=== PATIENT | female | born 1965 | race Caucasian/White ===

== ENCOUNTER → 2016-08-25 | Outpatient (CLI) | payer BC ==
[~2016-08-25] MED LIST: AMOX1TAB42 PO; AMPH10TA2 PO; AMPH20CA3 PO; AMPH20TA2 PO; CHOL200027 PEG; CLR/5 PO; CYAN500T PO; FAMO40TA6 PO; GLC/500 PO; HYDR-5688 PO; HYDR12.55 PO; IBUP-1451 PO; IPRA1AER2 INH; LEVO75TA5 PO; LORA-741 PO; LOSA50TA6 PO; MULT1TAB22 PO; PRMVC VAGRING; VALA500T60 PO; VSC/10 PO
--- NOTE | 2016-08-25 13:04 | MAMMOGRAPHY REPORT ---
BILATERAL DIGITAL SCREENING MAMMOGRAM TOMOSYNTHESIS WITH CAD: 08/25/2016 CLINICAL HISTORY: Routine screening. Patient has no complaints. TECHNIQUE: Breast tomosynthesis in addition to standard 2D mammography was performed. Current study was also evaluated with a Computer Aided Detection (CAD) system. COMPARISON: Comparison is made to exams dated: 08/20/2015 mammogram - [facility], 1 05/26/2007 and 08/11/2013 and 02/09/2012 mammograms. BREAST COMPOSITION: The tissue of both breasts is almost entirely fatty. FINDINGS: No suspicious masses, calcifications, or areas of architectural distortion are noted in e ither breast. There has been no significant interval change compared to prior exams. Scattered bilat eral benign-appearing calcifications are not significantly changed. IMPRESSION: ACR BI-RADS CATEGORY 2: BENIGN There is no mammographic evidence of malignancy. A 1 year screening mammogram is recommended. The p atient will receive written notification of the results. Approximately 10% of breast cancers are not detected with mammography. A negative mammographic repor t should not delay biopsy if a clinically suggestive mass is present. Sharon Manley M.D. /:08/25/2016 07:52:05 [employer]: Neema BEST)(Michael), [facility] letter sent: Normal 1/2 BI-RADS Code: ACR BI-RADS Category 2: Benign
== END | disposition home or self-care (01) ==
LOC: C.MAMM 07:23
PROVIDERS: ATTEND Family Medicine
DX: Z12.31 Encounter for screening mammogram for malignant neoplasm of breast (principal)

== ENCOUNTER → 2016-10-20 | Outpatient (CLI) | payer BC, OTHER ==
--- NOTE | 2016-10-20 11:43 | DIAGNOSTIC IMAGING REPORT ---
RIGHT WRIST MIN 3 VIEWS ROUTINE CLINICAL HISTORY: Right wrist pain and numbness COMPARISON: None. DISCUSSION: No fractures or dislocations are visualized. There are no erosive or destructive changes. IMPRESSION: 1. No acute fractures. No erosive or destructive changes are visualized. Electronically signed by: Raad Soares M.D. 10/20/2016 11:41 AM Dictated Date/Time: 10/20/2016 11:41 AM
--- NOTE | 2016-10-20 12:01 | DIAGNOSTIC IMAGING REPORT ---
RIGHT ELBOW MIN 3 VIEWS CLINICAL HISTORY: RIGHT HAND PARESTHESIA Right COMPARISON STUDY: None. FINDINGS: No fracture or dislocation within the right elbow. No significant joint effusion. Soft tissues are unremarkable. Small osteophyte at the proximal ulna. There or small enthesophytes at the lateral epicondyle. IMPRESSION: No fractures. Chronic changes within the right elbow is described above. Electronically signed by: Nicanor Bhatt M.D. 10/20/2016 12:00 PM Dictated Date/Time: 10/20/2016 11:59 AM
== END | disposition home or self-care (01) ==
LOC: C.RDSM 11:25
PROVIDERS: ATTEND Physician Assistant
DX: R20.2 Paresthesia of skin (principal); M25.521 Pain in right elbow; M25.531 Pain in right wrist

== ENCOUNTER → 2017-06-22 | Outpatient (CLI) | payer BC ==
[~2017-06-22] MED LIST changes: -AMOX1TAB42 PO; -AMPH10TA2 PO; -AMPH20TA2 PO
[2017-06-22 13:28] LABS: ALBUMIN 3.8 gm/dl (3.4-5.0); ALT/SGPT 44 U/L (12-78); BLOOD UREA NITROGEN 14 mg/dl (7-18); CALCIUM 9.5 mg/dl (8.5-10.1); CARBON DIOXIDE 25 mmol/L (21-32); CHOLESTEROL 214 mg/dl (0-200); CREATININE 0.68 mg/dl (0.60-1.20); GLUCOSE 96 mg/dl (70-99); POTASSIUM 4.1 mmol/L (3.5-5.1); SODIUM 137 mmol/L (136-145)
[2017-06-22 13:38] LABS: ALKALINE PHOSPHATASE 63 U/L (45-117); AST/SGOT 27 U/L (15-37); LDL CHOLESTEROL CALCULATED 136 mg/dl; TOTAL PROTEIN 8.1 gm/dl (6.4-8.2)
== END | disposition home or self-care (01) ==
LOC: C.LABMFLN 09:51
PROVIDERS: ATTEND Family Medicine
DX: R30.0 Dysuria (principal); E53.8 Deficiency of other specified B group vitamins; E55.9 Vitamin D deficiency, unspecified; E16.1 Other hypoglycemia; I10 Essential (primary) hypertension; E78.00 Pure hypercholesterolemia, unspecified; E07.9 Disorder of thyroid, unspecified

== ENCOUNTER → 2017-08-31 | Outpatient (CLI) | payer BC | END | disposition home or self-care (01) | LOC: C.LABMFLN 12:08 | PROVIDERS: ATTEND Family Medicine | DX: R30.0 Dysuria (principal) ==

== ENCOUNTER → 2017-09-04 | Outpatient (CLI) | payer BC ==
--- NOTE | 2017-09-04 07:48 | DIAGNOSTIC IMAGING REPORT ---
CHEST 2 VIEWS ROUTINE CLINICAL HISTORY: 52 years-old Female presenting with R05 Cough. TECHNIQUE: PA and lateral views of the chest were obtained. COMPARISON: None. FINDINGS: Cardiac silhouette mildly enlarged. Lungs and pleural spaces clear. Degenerative changes of the thoracic spine. Upper abdomen normal. IMPRESSION: 1. Mild cardiomegaly. No other convincing evidence of acute cardiopulmonary disease. Electronically signed by: Sumit Estrada M.D. 09/04/2017 7:47 AM Dictated Date/Time: 09/04/2017 7:46 AM
== END | disposition home or self-care (01) ==
LOC: C.RAD 07:27
PROVIDERS: ATTEND Family Medicine
DX: R05 Cough (principal)

== ENCOUNTER → 2017-12-07 | Outpatient (CLI) | payer BC ==
[~2017-12-07] MED LIST changes: -HYDR-5688 PO
== END | disposition home or self-care (01) ==
LOC: C.LABMFLN 08:49
PROVIDERS: ATTEND Family Medicine
DX: R30.0 Dysuria (principal)

== ENCOUNTER 2019-07-01 13:03 | Inpatient (IN) ==
[2019-07-01] MEDS ORDERED: MAGNESIUM HYDROXIDE SUSP 30 ML UDC PO PRN (14:29)
[2019-07-01] MEDS ORDERED: ACETAMINOPHEN 325 MG TAB PO PRN (14:29)
[2019-07-01] MEDS ORDERED: DEXTROSE 50% 50 ML SYRINGE IV PRN (14:29)
[2019-07-01] MEDS ORDERED: GLUCAGON FOR INJ 1 MG VIAL SQ PRN (14:29)
[2019-07-01] MEDS ORDERED: ONDANSETRON INJ 2 MG/ML 2 ML VIAL IV PRN (14:29)
[2019-07-01] MEDS ORDERED: CARBOHYDRATES FOR HYPOGLYCEMIA PO PRN (14:29)
[2019-07-01] MEDS ORDERED: GLUCOSE 10 TABS/TUBE PO PRN (14:29)
[2019-07-01] MEDS ORDERED: GLUCOSE 40% GEL 15 GM TUBE PO PRN (14:29)
--- NOTE | 2019-07-01 14:35 | History & Physical Report ---
Date of Service July 01, 2019 Assessment & Plan (1) Pancreatitis: Dx in [place] ED, d/c'd s/p IVF and feeling improved--some sx lingering, but overall much better than yesterday States lipase was >3000, also noted on CTAP--records requested NPO, IVF CBC, PRP, Mg, Phos, lipase, amylase, LFTs pending TSH, lipids pending Will hold on further imaging given overall improvement GI c/s pending per request of Dr. Mas Pt notes hx of cyst on opening of CBD that is monitored Concern regarding recent victoza use, however she has not used in >6 months (2) Hypothyroidism: continue home meds TSH pending (3) Hypertension: continue home meds (4) Hypersomnia with sleep apnea: Compliant with CPAP at home, did not bring her machine ordered set up here (5) Hyperlipidemia: Denies hx of dx Lipids pending (6) Diabetes: Metformin only as current regimen with plans to try victoza again, but had not restarted Hold metformin SSI PRN A1c pending, was 6.1 11/2018 (7) ADHD: continue home meds (8) Asthma: States this was environmentally induced, no hx of inhaler use for many years (9) Dysuria: Hx of chronic klebsiella in urine Takes cipro x7d PRN dysuria Last use was 2 weeks ago (10) Migraines: continue home meds (11) DVT prophylaxis: SCDs History of Present Illness Primary Care Provider: Diego Montez, 54 y/o F who was a direct admit for acute pancreatitis. Pt states that she woke around 3a on Sunday with n/v. She thought she had the flu at that time. She started to have epigastric pain yesterday and it became so severe that she went to the ED in [place]. She states her lipase was >3000. She had a CTAP that showed pancreatitits. She was given IVF and felt much improved, so it was determined that she could be d/c'd to home with PCP f/u. She was seen by PCP today and it was felt that she needed further tx for this. Pt states that she has not thrown up today, but she has not been able to eat anything. She does have epigastric pain, but nothing like yesterday. She has had several episodes of diarrhea yesterday and today. Pt denies fever, chest pain, LE pain or swelling. No prior hx of similar epigastric pain or hx of pancreatitis. Pt notes SOB when walking from the parking lot to the lobby, but no other SOB. Concern from Dr. Mas regarding pt using Victoza. Pt states last dosing was in the summer as she did not tolerate it. She states that after her first dose she had v/d, so it was stopped. She tried it again a few weeks later, but with similar issues. She was actually supposed to start it again this week, but had these sx and therefore did not. She states that her BS were increased recently. Pt notes that she has a cyst at the opening of her CBD that is monitored yearly. She states it was not visualized on CTAP at OSH. Allergies Allergy/AdvReac Type Severity Reaction Status Date / Time nitrofurantoin Allergy Intermediate hives Verified 03/14/19 11:11 bismuth subsalicylate AdvReac Intermediate ringing in Unverified 03/14/19 11:11 ears / passed out Home Medications Home Medications Medication Instructions Recorded Confirmed Type furosemide 20 mg tablet 20 mg PO DAILY #90 tab 11/08/18 07/01/19 Rx blood sugar diagnostic #100 ea 12/06/18 07/01/19 Rx cholecalciferol (vitamin D3) 50 2,000 units PO DAILY #90 cap 12/06/18 07/01/19 Rx mcg (2,000 unit) capsule ciprofloxacin HCl 500 mg tablet 500 mg PO BID #180 tab 12/06/18 07/01/19 Rx famotidine 40 mg tablet 40 mg PO DAILY #90 tab 12/06/18 07/01/19 Rx ibuprofen 800 mg tablet 800 mg PO TID PRN #270 tab 12/06/18 07/01/19 Rx ipratropium 20 mcg-albuterol 100 1 puffs INH QID PRN #4 gm 12/06/18 07/01/19 Rx mcg/actuation mist for inhalation lancets #100 ea 12/06/18 07/01/19 Rx levothyroxine 88 mcg tablet 88 mcg PO DAILY #90 tab 12/06/18 07/01/19 Rx lorazepam 0.5 mg tablet 0.5 mg PO Q6H PRN #30 tab 12/06/18 07/01/19 Rx losartan 50 mg tablet 50 mg PO DAILY #90 tab 12/06/18 07/01/19 Rx multivitamin 1 tab PO DAILY #90 tab 12/06/18 07/01/19 Rx pen needle, diabetic 32 gauge x #100 ea 12/06/18 07/01/19 Rx 5/32" phenazopyridine 100 mg tablet 100 mg PO TID PRN #90 tab 12/06/18 07/01/19 Rx desloratadine 5 mg tablet 5 mg PO DAILY PRN #90 tab 12/13/18 07/01/19 Rx metformin 500 mg tablet,extended 500 mg PO BID #180 tab 12/13/18 07/01/19 Rx release 24 hr dextroamphetamine-amphetamine 10 10 mg PO DAILY #30 tab 01/10/19 07/01/19 Rx mg tablet sodium,potassium,mag sulfates 17.5 177 ml PO DAILY #354 ml 03/17/19 07/01/19 Rx gram-3.13 gram-1.6 gram oral soln dextroamphetamine-amphetamine ER 30 mg PO DAILY #30 cap 05/26/19 07/01/19 Rx 30 mg 24hr capsule,extend release liraglutide 0.6 mg/0.1 mL (18 mg/3 0.6 mg SQ DAILY #6 ml 06/12/19 07/01/19 Rx mL) subcutaneous pen injector Past Med/Surg History Medical History ADHD (Chronic) Asthma (Chronic) BMI 45.0-49.9, adult (Chronic) Cough (Chronic) Depression (Chronic) Diabetes (Chronic) Dysuria (Chronic) Elevated liver enzymes (Chronic) Encounter for screening colonoscopy (Chronic) Encounter for screening mammogram for breast cancer (Chronic) Gestational diabetes mellitus (Chronic) High blood cholesterol (Chronic) High blood pressure (Chronic) Hyperinsulinemia (Chronic) Hyperlipidemia (Chronic) Hypersomnia with sleep apnea (Chronic) Hypertension (Chronic) Hypothyroidism (Chronic) IBS (irritable bowel syndrome) (Chronic) Leg swelling (Chronic) Liver lesion (Chronic) Metabolic syndrome (Chronic) Migraines (Chronic) Morbid obesity (Chronic) Overweight (Chronic) Prediabetes (Chronic) Recurrent UTI (Chronic) Thyroid disorder (Chronic) Vitamin B12 deficiency (Chronic) Vitamin D deficiency (Chronic) Family History (Updated 07/01/19 @ 14:41 by Kassandra Spencer DO) Grandfather (Paternal) Myocardial infarction Social History marital status: Current Living Situation: Spouse current occupational status: employed current occupation: [employer] Feels Safe at Home: Yes Smoking Status: Former smoker Age Started Using Tobacco: 16 ; Age Quit Using Tobacco: 42 ; Cigarettes Per Day: 10 ; Second Hand Exposure: No ; Hx Alcohol Use: Yes Alcohol Intake Frequency: Holidays/Special Occasions Hx Substance Use: No Childhood Exposure to Second-Hand Smoke: Yes caffeine: Yes (coffee ) Dental Care, Regularly: Yes Physical Activity Frequency: Does not Exercise Seatbelt Use: always Sunscreen Use: Yes (occassionally) Review of Systems Review of Systems: Pertinent positives and negatives reviewed in HPI--all others negative Physical Exam Constitutional: WD/WN, vitals as above Eyes: normal visual cheney by confrontation and + anicteric sclerae Neck: normal visual inspection and trachea midline Respiratory: normal respiratory effort, lungs clear to auscultation Cardiovascular: Rate/Rhythm: regular rate and regular rhythm Gastrointestinal (Abdomen): Inspection/Auscultation: abdomen not distended Percussion/Palpation: + abdomen tender (epigastric) and abdomen soft Musculoskeletal: Head/Neck/Chest: normocephalic and head atraumatic negative for edema, peripheral pulses intact Skin: no rashes, warm and dry Neurologic: awake; not confused Speech / Cognition: normal speech Psychiatric: A+Ox3, euthymic affect Results & Data Vital Signs (Past 12 Hours) Vital Signs Temp Pulse Resp BP Pulse Ox 07/01/19 14:28 37.3 C 62 16 112/67 97 Code Status & VTE Plan Code Status Full code VTE Prophylaxis Plan VTE Prophylaxis will be ordered: Yes PG Care Time/CCT Total # of Minutes Spent Total Time Spent with Patient: Total time spent is greater than 50% in coordination of care (as documented) at patient's floor/unit and/or counseling patient: Coding Level of Care Code 98880 Initial Inpt Care Lvl 3 Diagnoses Pancreatitis K85.90 Hypothyroidism E03.9 Hypertension I10 Hypersomnia with sleep apnea G47.10; G47.30 Hyperlipidemia E78.5 Diabetes E11.9 ADHD F90.9 Asthma J45.909 Dysuria R30.0 Migraines G43.909 DVT prophylaxis Z29.9
[2019-07-01 14:59] LABS: Basophils # (auto) 0.01 K/uL (0-0.2); Basophils % (auto) 0.1 %; Eosinophils # (auto) 0.16 K/uL (0-0.5); Eosinophils % (auto) 1.8 %; Hematocrit (blood only) 40.7 % (37-47); Hemoglobin 13.5 g/dL (12.0-16.0); Immature Granulocytes # (auto) 0.01 K/uL (0.00-0.02); Immature Granulocytes % (auto) 0.1 %; Lymphocytes # (auto) 3.28 K/uL (1.2-3.4); Lymphocytes % (auto) 37.4 %; Mean Corpuscular Hemoglobin 33.3 pg (25-34); Mean Corpuscular Hgb Conc 33.2 g/dL (32-36); Mean Corpuscular Volume 100.2 fL (80-100); Mean Platelet Volume 9.1 fL (7.4-10.4); Monocytes # (auto) 0.74 K/uL (0.11-0.59); Monocytes % (auto) 8.4 %; Neutrophils # (auto) 4.58 K/uL (1.4-6.5); Neutrophils % (auto) 52.2 %; Platelet Count 266 K/uL (130-400); RDW Coefficient of Variation 12.5 % (11.5-14.5); RDW Standard Deviation 45.9 fL (36.4-46.3); Red Blood Count 4.06 M/uL (4.2-5.4); White Blood Count 8.78 K/uL (4.8-10.8)
[2019-07-01 15:15] LABS: BUN Creatinine Ratio 17.2 (10-20); Calcium 9.1 mg/dl (8.5-10.1); Creatinine Clr Calc Pharmacy 105.8 ml/min; Est GFR (African American) 104.7; Est GFR (Non-African American) 90.4; Magnesium 2.2 mg/dl (1.8-2.4); Potassium 3.2 mmol/L (3.5-5.1)
[2019-07-01] MEDS ORDERED: FUROSEMIDE 20 MG TAB PO PRN (15:23)
[2019-07-01] MEDS ORDERED: LORazepam 0.5 MG TAB PO PRN (15:23)
[2019-07-01] MEDS ORDERED: PHENAZOPYRIDINE HCL 100 MG TAB PO PRN (15:23)
[2019-07-01] MEDS ORDERED: IPRATROPIUM BROMIDE/ALBUTEROL respimat INH INH PRN (15:23)
[2019-07-01 15:26] LABS: Phosphorus 2.1 mg/dl (2.5-4.9); Thyroid Stimulating Hormone 2.89 uIu/ml (0.300-4.500)
--- NOTE | 2019-07-01 15:28 | Gastrointestinal Consultation ---
Date of Consultation July 01, 2019 Assessment & Plan (1) Pancreatitis: NPO, IV fluids, pain mangement. No obvious explanation. Not much ETOH. Await lipids. Check MRCP for bile duct pathology. Asked pharmacy to run outpt med list for suspects. n/v--supportive care diarrhea--resolved at present elevated LFTS--had last summer also, follow, if continue to be high then outpt workup elevated MCV--check Vit B12 level lung nodule on CT---told patient needs outpt f/u History of Present Illness Reason for Consultation: pancreatitis Attending Physician: Kassandra Spencer, History of Present Illness CC abd painn, n/v, diarrha HPI [place] with patient for h and P. 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 Yesterday developed epi pain and became severe. She presented to ER in [place]. CT a/p showed pancreatiis, 6 mm LLL nodule, fatty liver. Lipase greater than 3000. Resp virus panel from nares swab neg. Transaminases slighlty elevated AST54, ALT 45. Nl hgb but elevated MCV. 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 No hx of pancreatisi. Noted trigs normal 2017. RAre ETOH use with last use [employer]. No new meds. No fhx of pancreatitis.. She states abd pain now dull aches. Lipase today 1275. However she presented to PCP and not tolerating po. She last had stool lsts night. No new meds. Victoza was used several months ago and stoppped seccondary to side effects. Contemplated restarting but not has not. Allergies Allergy/AdvReac Type Severity Reaction Status Date / Time nitrofurantoin Allergy Intermediate hives Verified 03/14/19 11:11 bismuth subsalicylate AdvReac Intermediate ringing in Unverified 03/14/19 11:11 ears / passed out Home Medications Home Medications Medication Instructions Recorded Confirmed Type blood sugar diagnostic #100 ea 12/06/18 07/01/19 Rx cholecalciferol (vitamin D3) 50 2,000 units PO DAILY #90 cap 12/06/18 07/01/19 Rx mcg (2,000 unit) capsule ibuprofen 800 mg tablet 800 mg PO TID PRN #270 tab 12/06/18 07/01/19 Rx ipratropium 20 mcg-albuterol 100 1 puffs INH QID PRN #4 gm 12/06/18 07/01/19 Rx mcg/actuation mist for inhalation lancets #100 ea 12/06/18 07/01/19 Rx levothyroxine 88 mcg tablet 88 mcg PO DAILY #90 tab 12/06/18 07/01/19 Rx lorazepam 0.5 mg tablet 0.5 mg PO Q6H PRN #30 tab 12/06/18 07/01/19 Rx losartan 50 mg tablet 50 mg PO DAILY #90 tab 12/06/18 07/01/19 Rx multivitamin 1 tab PO DAILY #90 tab 12/06/18 07/01/19 Rx pen needle, diabetic 32 gauge x #100 ea 12/06/18 07/01/19 Rx 5/32" phenazopyridine 100 mg tablet 100 mg PO TID PRN #90 tab 12/06/18 07/01/19 Rx desloratadine 5 mg tablet 5 mg PO DAILY PRN #90 tab 12/13/18 07/01/19 Rx metformin 500 mg tablet,extended 500 mg PO BID #180 tab 12/13/18 07/01/19 Rx release 24 hr dextroamphetamine-amphetamine 10 10 mg PO DAILY #30 tab 01/10/19 07/01/19 Rx mg tablet sodium,potassium,mag sulfates 17.5 177 ml PO DAILY #354 ml 03/17/19 07/01/19 Rx gram-3.13 gram-1.6 gram oral soln dextroamphetamine-amphetamine ER 30 mg PO DAILY #30 cap 05/26/19 07/01/19 Rx 30 mg 24hr capsule,extend release liraglutide 0.6 mg/0.1 mL (18 mg/3 0.6 mg SQ DAILY #6 ml 06/12/19 07/01/19 Rx mL) subcutaneous pen injector ciprofloxacin HCl 500 mg PO BID PRN 07/01/19 07/01/19 History famotidine 40 mg PO DAILY PRN 07/01/19 07/01/19 History furosemide 20 mg PO DAILY PRN 07/01/19 07/01/19 History Patient History Medical History ADHD (Chronic) Asthma (Chronic) BMI 45.0-49.9, adult (Chronic) Cough (Chronic) Depression (Chronic) Diabetes (Chronic) Dysuria (Chronic) Elevated liver enzymes (Chronic) Encounter for screening colonoscopy (Chronic) Encounter for screening mammogram for breast cancer (Chronic) Gestational diabetes mellitus (Chronic) High blood cholesterol (Chronic) High blood pressure (Chronic) Hyperinsulinemia (Chronic) Hyperlipidemia (Chronic) Hypersomnia with sleep apnea (Chronic) Hypertension (Chronic) Hypothyroidism (Chronic) IBS (irritable bowel syndrome) (Chronic) Leg swelling (Chronic) Liver lesion (Chronic) Metabolic syndrome (Chronic) Migraines (Chronic) Morbid obesity (Chronic) Overweight (Chronic) Prediabetes (Chronic) Recurrent UTI (Chronic) Thyroid disorder (Chronic) Vitamin B12 deficiency (Chronic) Vitamin D deficiency (Chronic) Family History Grandfather (Paternal) Myocardial infarction Social History Preferred Language: Kyrgyz Communication Ability: Effective Clay Washer Required: No Beliefs That Will Affect Care: None marital status: Current Living Situation: Spouse current occupational status: employed current occupation: [employer] Other Information That Helps Us Care for You: No Feels Safe at Home: Yes Safety Concerns: Feels Safe At This Time Smoking Status: Former smoker Age Started Using Tobacco: 16 ; Age Quit Using Tobacco: 42 ; Cigarettes Per Day: 10 ; Do You Dip or Chew Tobacco: No ; Second Hand Exposure: No ; Tobacco Cessation Education Requested by Patient: No Hx Alcohol Use: Yes Alcohol Intake Frequency: Holidays/Special Occasions Hx Substance Use: No Childhood Exposure to Second-Hand Smoke: Yes caffeine: Yes (coffee ) Dental Care, Regularly: Yes Physical Activity Frequency: Does not Exercise Seatbelt Use: always Sunscreen Use: Yes (occassionally) Review of Systems Review of Systems: All systems reviewed & are unremarkable except as noted in HPI & below Physical Exam Constitutional: WD/WN, vitals as above Eyes: PERRL, conjunctivae normal, anicteric sclerae ENMT: external ear and nose normal, oropharynx normal Neck: normal visual inspection and trachea midline Respiratory: normal respiratory effort, lungs clear to auscultation Cardiovascular: RRR, no murmur, no edema Gastrointestinal (Abdomen): normal bowel sounds, soft, nontender, no hepatosplenomegaly Neurologic: PERRL, EOMI, accommodation nl, no face palsy, no dysarthria Psychiatric: A+Ox3, euthymic affect Results & Data ([facility]) Vital Signs (Past 12 Hours) Vital Signs Temp Pulse Resp BP Pulse Ox 07/01/19 14:28 37.3 C 62 16 112/67 97 07/01/19 14:15 37.3 C 62 16 112/67 97
[2019-07-01] MEDS ORDERED: POTASSIUM PHOS 3 MMOL/1 ML INFUSION IV STA (15:34)
[2019-07-01] MEDS: SODIUM CHLORIDE 0.9% 1000ML 1,000 ML IV SCH (15:39)
[2019-07-01] MEDS ORDERED: POTASSIUM PHOSPHATE 30 MMOL in SODIUM CHLORIDE 0.9% 500 ML IV ONE (16:00)
[2019-07-01] MEDS ORDERED: INSULIN ASPART 100 UNITS/ML 3 ML PEN SC SCH (16:30)
[2019-07-01] MEDS ORDERED: METFORMIN HCL ER 500 MG TABCR PO SCH (17:00)
--- NOTE | 2019-07-01 21:36 | Magnetic Resonance Report ---
MR MRCP CLINICAL HISTORY: 54 years-old Female presenting with vomiting, generalized abdominal pain, pancreati tis, hx of choledochal cyst. TECHNIQUE: Multisequence, multiplanar MR imaging of the abdomen was performed without the use of intr avenous contrast. Dedicated MRCP protocol was utilized. 3-D volumetric and/or maximum intensity proje ction (MIP) images were subsequently reconstructed for review. IV contrast: None. COMPARISON: 10/03/2018. FINDINGS: Localizer images: Unremarkable. Lung bases: Normal heart size. No pericardial or pleural effusion. Lung base clear. Liver: Normal morphology. Biliary: Conventional intrahepatic biliary ductal bifurcation. Focally dilated central intrahepatic b iliary ducts, unchanged from prior exam. No peripheral intrahepatic bile duct dilatation. Redemonstra tion of the dilated cystic duct. The size of the dilated cystic duct is unchanged measuring 27 mm in diameter. The dilated cystic duct involves a portion of the common bile duct. Apart from this involve ment, the common duct is not dilated. No gallstones. Mild gallbladder wall thickening, an appearance that is is slightly worsened from prior. No pericholecystic inflammatory change. Pancreas: Moderate parenchymal atrophy. No pancreatic ductal dilatation. Spleen: Normal noncontrast appearance. Adrenal glands: Normal noncontrast appearance. Kidneys and ureters: Normal noncontrast appearance. No hydronephrosis. Normal ureters. Bowel: Normal noncontrast appearance. No bowel obstruction. Peritoneal cavity: No free fluid. Lymph nodes: No gross lymphadenopathy allowing for noncontrast technique. Vasculature: Normal noncontrast appearance. Abdominal wall: Normal. Musculoskeletal: Normal. IMPRESSION: 1. 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 No complication is apparent. 2. Mild central predominant intrahepatic or ductal dilatation is unchanged from prior. 3. No cholelithiasis or choledocholithiasis. 4. Mild gallbladder wall thickening is nonspecific is stable to slightly worsened from prior. This m ay relate to biliary stasis. Chronic cholecystitis or diffuse adenomyomatosis not excluded. If there is concern for chronic cholecystitis, HIDA scan with ejection fraction could be obtained. ACT 112: Negative or not required by law. Electronically signed by: Sumit Estrada M.D. 07/01/2019 9:35 PM
[2019-07-02] MEDS: INSULIN ASPART 100 UNITS/ML 3 ML PEN SC SCH ×5 (00:22→21:32)
[2019-07-02] MEDS: SODIUM CHLORIDE 0.9% 1000ML 1,000 ML IV SCH ×2 (01:08→09:11)
[2019-07-02 05:50] LABS: Basophils # (auto) 0.02 K/uL (0-0.2); Basophils % (auto) 0.2 %; Eosinophils # (auto) 0.26 K/uL (0-0.5); Eosinophils % (auto) 2.8 %; Hematocrit (blood only) 33.8 % (37-47); Hemoglobin 11.7 g/dL (12.0-16.0); Immature Granulocytes # (auto) 0.01 K/uL (0.00-0.02); Immature Granulocytes % (auto) 0.1 %; Lymphocytes # (auto) 3.69 K/uL (1.2-3.4); Lymphocytes % (auto) 40.2 %; Mean Corpuscular Hemoglobin 34.1 pg (25-34); Mean Corpuscular Hgb Conc 34.6 g/dL (32-36); Mean Corpuscular Volume 98.5 fL (80-100); Mean Platelet Volume 8.2 fL (7.4-10.4); Monocytes # (auto) 0.64 K/uL (0.11-0.59); Neutrophils # (auto) 4.56 K/uL (1.4-6.5); Neutrophils % (auto) 49.7 %; Platelet Count 246 K/uL (130-400); RDW Coefficient of Variation 12.6 % (11.5-14.5); RDW Standard Deviation 45.6 fL (36.4-46.3); Red Blood Count 3.43 M/uL (4.2-5.4); White Blood Count 9.18 K/uL (4.8-10.8)
[2019-07-02 06:03] LABS: Estimated Average Glucose 131 mg/dl; Hemoglobin A1C 6.2 % (4.5-5.6)
[2019-07-02] MEDS: LEVOTHYROXINE SODIUM 88 MCG TABLET PO SCH (06:06)
[2019-07-02 06:18] LABS: Alanine Aminotransferase 31 U/L (12-78); Albumin Level 2.6 gm/dl (3.4-5.0); Aspartate Aminotransferase 14 U/L (15-37); BUN Creatinine Ratio 17.7 (10-20); Blood Urea Nitrogen 10 mg/dl (7-18); Calcium 8.3 mg/dl (8.5-10.1); Carbon Dioxide 25 mmol/L (21-32); Chloride 112 mmol/L (98-107); Creatinine Clr Calc Pharmacy 144.2 ml/min; Est GFR (African American) 123.2; Est GFR (Non-African American) 106.3; Glucose 82 mg/dl (70-99); Lipase 612 U/L (73-393); Potassium 3.2 mmol/L (3.5-5.1); Sodium 141 mmol/L (136-145)
[2019-07-02 06:22] LABS: Albumin Globulin Ratio 0.8 (0.9-2); Alkaline Phosphatase 54 U/L (45-117); Bilirubin Direct < 0.1 mg/dl (0-0.2); Bilirubin,Total 0.3 mg/dl (0.2-1); Chol HDL Ratio 3; Cholesterol 129 mg/dl (0-200); Globulin 3.4 gm/dl (2.5-4.0); HDL Cholesterol 41 mg/dl; LDL Cholesterol Calculated 73 mg/dl; Triglycerides 74 mg/dl (0-150); VLDL Cholesterol 15 mg/dl
[2019-07-02] MEDS: POTASSIUM CHLORIDE / WTR 10 MEQ/100 ML PLCT IV SCH ×4 (06:49→10:19)
[2019-07-02] MEDS: DEXTROAMPHETAMINE/AMPHETAMINE ER 10 MG CAP PO SCH (08:43)
[2019-07-02] MEDS ORDERED: [UNRECOGNIZED DRUG - OTHER] PO SCH (09:00)
[2019-07-02] MEDS: LACTATED RINGER'S 1,000 ML IV SCH ×2 (09:08→17:24)
--- NOTE | 2019-07-02 09:35 | Hospitalist Progress Note ---
Date of Service July 02, 2019 Assessment & Plan (1) Pancreatitis: * Dx in [place] ED, d/c'd s/p IVF and feeling improved--some sx lingering in ED. Lipase reported >[address] A/p. * IMPROVED. Currently, patient without reported pain * GI on consult -- appreciate input * Lipase down to 612 from 1275 on admission. * Lipid panel without elevation in triglycerides, 74 * IVF switched to LR -- will decrease rate as patient taking PO. * Patient requested clear liquid diet -- tolerated well. No additional pain. * Diet advanced to DM tray for dinner * TSH 2.89 * MRCP without evidence of stone. Unchanged cholecochocele, no dilation of CBD. Mild gb wall thickening, slightly worsened from previous exams * Possible that losartan induced, however patient has been taking this medication since May 2017 per outpatient record. Rec from GI to switch to alternative medication class. Patient has not received during this admission, and BP currently 122/72. (2) Hypothyroidism: * TSH 2.89. Stable. Continue levothyroxine 88mcg (3) Hypertension: * Patient takes losartan 50mg daily -- discontinued as possibly cause of pancreatitis (patient has not received since admission) * Monitor BP -- currently stable at 122/72 (4) Hypersomnia with sleep apnea: * Compliant with CPAP at home, did not bring her machine. ordered set up here (5) Hyperlipidemia: * Denies hx of dx. Lipids panel wnl (6) Diabetes: * Metformin only as current regimen with plans to try victoza again, but had not restarted. Of note, patient supposed to be taking metformin 500mg TWICE daily, but admits she typically only takes this once daily * Hold metformin while inpatient * SSI * A1c slightly increased to 6.2 from 6.1 in 11/2018 --> should have repeat in 3 months. Counseled patient that she should attempt to take twice daily. Could also alternatively give 1000mg once daily (7) ADHD: * Chronic. Stable. Continue home amphetamine/dextroamphetamine (8) Asthma: * States this was environmentally induced, no hx of inhaler use for many years (9) Macrocytosis: * MCV >100. B12 high 1725. Folate >24.0 * MCV only occasionally >100. Discussed with patient -- it continues to be elevated on repeat lab work she may want to have hematology follow up as an outpatient. Instructed to continue to hold B12 supplementations, as clearly not deficient (10) Hypokalemia: * K 3.2- given 4 K riders * Repeat in AM (11) Dysuria: * Hx of chronic klebsiella in urine. Takes cipro x7d PRN dysuria. Last use was 2 weeks ago (12) DVT prophylaxis: * SCDs Dispo: possible discharge tomorrow Admission and Anticipated Discharge Date Admission Date: July 01, 2019 Supervising Physician Co-Signing Physician Notes Attending Attestation - Chart reviewed in detail, care plan d/w NIDHI Wagner. I agree w/ the jaimes components of her documentation. Pt with pancreatitis - ?losartan induced? viral? other? Clinically improving. Start clears. Bartolo Juarez MD Subjective Patient evaluated up in chair. She states she is not having any abdominal pain currently, rated 0/10. Tolerated clear liquid diet this morning without difficulty. Reviewed MRCP and labs. Discussed etiologies of pancreatitis and possibly idiopathic in nature given normal triglycerides and occasional alcoholic be verage (last being Thanksgiving). She also states she takes 800mg ibuprofen daily for years for daily aches/pains. Discussed advancing diet and possible discharge tomorrow. All questions/concerns addressed. Review of Systems Review of Systems: All systems reviewed & are unremarkable except as noted in HPI & below Constitutional: no fever and no chills Ear, Nose, Mouth, Throat: no sore throat and no dysphagia Respiratory: no cough and no dyspnea Cardiovascular: no chest pain and no palpitations Gastrointestinal: no abdominal pain and no vomiting Genitourinary: no dysuria and no urinary frequency Physical Exam Constitutional: WD/WN, vitals as above no acute distress ENMT: slightly dry mm Neck: trachea midline, no thyromegaly Respiratory: normal respiratory effort, lungs clear to auscultation Cardiovascular: RRR, no murmur, no edema Gastrointestinal (Abdomen): Inspection/Auscultation: abdomen normal to inspection and normal bowel sounds; abdomen not distended Percussion/Palpation: + abdomen tender (minimally tender with deep palpation epigastric region) and abdomen soft; no guarding and abdomen not rigid Musculoskeletal: no cyanosis or clubbing, extremities motor strength 5/5 Skin: no rashes, warm and dry Neurologic: PERRL, EOMI, accommodation nl, no face palsy, no dysarthria Psychiatric: A+Ox3, euthymic affect Results & Data ([facility]) Vital Signs (Past 12 Hours) Vital Signs Temp Pulse Pulse Resp BP Pulse Ox 07/02/19 07:00 37.0 C 65 18 130/66 92 07/02/19 03:35 76 16 96 07/01/19 23:41 36.8 C 72 20 105/56 L 95 07/01/19 22:35 63 18 97 Laboratory Results 07/02/19 07/02/19 07/02/19 Range/Units 12:05 09:08 05:53 WBC (4.8-10.8) K/uL RBC (4.2-5.4) M/uL Hgb (12.0-16.0) g/dL Hct (37-47) % MCV (80-100) fL MCH (25-34) pg MCHC (32-36) g/dL RDW Std Deviation (36.4-46.3) fL RDW Coeff of Dorcas (11.5-14.5) % Plt Count (130-400) K/uL MPV (7.4-10.4) fL Immature Gran % (Auto) % Neut % (Auto) % Lymph % (Auto) % Hart % (Auto) % Eos % (Auto) % Baso % (Auto) % Immature Gran # (Auto) (0.00-0.02) K/uL Neut # (Auto) (1.4-6.5) K/uL Lymph # (Auto) (1.2-3.4) K/uL Hart # (Auto) (0.11-0.59) K/uL Eos # (Auto) (0-0.5) K/uL Baso # (Auto) (0-0.2) K/uL Sodium (136-145) mmol/L Potassium (3.5-5.1) mmol/L Chloride (98-107) mmol/L Carbon Dioxide (21-32) mmol/L Anion Gap (3-11) BUN (7-18) mg/dl Creatinine (0.6-1.2) mg/dl Est Cr Clr Drug Dosing ml/min Est GFR ( Amer) Est GFR (Non-Af Amer) BUN/Creatinine Ratio (10-20) Glucose (70-99) mg/dl POC Glucose 75 85 (70-99) mg/dl Estimat Average Glucose mg/dl Hemoglobin A1c (4.5-5.6) % Calcium (8.5-10.1) mg/dl Total Bilirubin (0.2-1) mg/dl Direct Bilirubin (0-0.2) mg/dl AST (15-37) U/L ALT (12-78) U/L Alkaline Phosphatase (45-117) U/L Total Protein (6.4-8.2) gm/dl Albumin (3.4-5.0) gm/dl Globulin (2.5-4.0) gm/dl Albumin/Globulin Ratio (0.9-2) Triglycerides (0-150) mg/dl Cholesterol (0-200) mg/dl LDL Cholesterol, Calc mg/dl VLDL Cholesterol, Calc mg/dl HDL Cholesterol mg/dl Cholesterol/HDL Ratio Lipase (73-393) U/L Vitamin B12 (211-911) pg/ml Folate > 24.00 (>5.38) ng/ml 07/02/19 07/02/19 07/02/19 Range/Units 05:36 05:36 05:36 WBC 9.18 (4.8-10.8) K/uL RBC 3.43 L (4.2-5.4) M/uL Hgb 11.7 L (12.0-16.0) g/dL Hct 33.8 L (37-47) % MCV 98.5 (80-100) fL MCH 34.1 H (25-34) pg MCHC 34.6 (32-36) g/dL RDW Std Deviation 45.6 (36.4-46.3) fL RDW Coeff of Dorcas 12.6 (11.5-14.5) % Plt Count 246 (130-400) K/uL MPV 8.2 (7.4-10.4) fL Immature Gran % (Auto) 0.1 % Neut % (Auto) 49.7 % Lymph % (Auto) 40.2 % Hart % (Auto) 7.0 % Eos % (Auto) 2.8 % Baso % (Auto) 0.2 % Immature Gran # (Auto) 0.01 (0.00-0.02) K/uL Neut # (Auto) 4.56 (1.4-6.5) K/uL Lymph # (Auto) 3.69 H (1.2-3.4) K/uL Hart # (Auto) 0.64 H (0.11-0.59) K/uL Eos # (Auto) 0.26 (0-0.5) K/uL Baso # (Auto) 0.02 (0-0.2) K/uL Sodium (136-145) mmol/L Potassium (3.5-5.1) mmol/L Chloride (98-107) mmol/L Carbon Dioxide (21-32) mmol/L Anion Gap (3-11) BUN (7-18) mg/dl Creatinine (0.6-1.2) mg/dl Est Cr Clr Drug Dosing ml/min Est GFR ( Amer) Est GFR (Non-Af Amer) BUN/Creatinine Ratio (10-20) Glucose (70-99) mg/dl POC Glucose (70-99) mg/dl Estimat Average Glucose 131 mg/dl Hemoglobin A1c 6.2 H (4.5-5.6) % Calcium (8.5-10.1) mg/dl Total Bilirubin (0.2-1) mg/dl Direct Bilirubin (0-0.2) mg/dl AST (15-37) U/L ALT (12-78) U/L Alkaline Phosphatase (45-117) U/L Total Protein (6.4-8.2) gm/dl Albumin (3.4-5.0) gm/dl Globulin (2.5-4.0) gm/dl Albumin/Globulin Ratio (0.9-2) Triglycerides (0-150) mg/dl Cholesterol (0-200) mg/dl LDL Cholesterol, Calc mg/dl VLDL Cholesterol, Calc mg/dl HDL Cholesterol mg/dl Cholesterol/HDL Ratio Lipase (73-393) U/L Vitamin B12 1725 H (211-911) pg/ml Folate (>5.38) ng/ml 07/02/19 07/02/19 07/01/19 Range/Units 05:36 00:15 16:28 WBC (4.8-10.8) K/uL RBC (4.2-5.4) M/uL Hgb (12.0-16.0) g/dL Hct (37-47) % MCV (80-100) fL MCH (25-34) pg MCHC (32-36) g/dL RDW Std Deviation (36.4-46.3) fL RDW Coeff of Dorcas (11.5-14.5) % Plt Count (130-400) K/uL MPV (7.4-10.4) fL Immature Gran % (Auto) % Neut % (Auto) % Lymph % (Auto) % Hart % (Auto) % Eos % (Auto) % Baso % (Auto) % Immature Gran # (Auto) (0.00-0.02) K/uL Neut # (Auto) (1.4-6.5) K/uL Lymph # (Auto) (1.2-3.4) K/uL Hart # (Auto) (0.11-0.59) K/uL Eos # (Auto) (0-0.5) K/uL Baso # (Auto) (0-0.2) K/uL Sodium 141 (136-145) mmol/L Potassium 3.2 L (3.5-5.1) mmol/L Chloride 112 H (98-107) mmol/L Carbon Dioxide 25 (21-32) mmol/L Anion Gap 4.0 (3-11) BUN 10 (7-18) mg/dl Creatinine 0.55 L (0.6-1.2) mg/dl Est Cr Clr Drug Dosing 144.2 ml/min Est GFR ( Amer) 123.2 Est GFR (Non-Af Amer) 106.3 BUN/Creatinine Ratio 17.7 (10-20) Glucose 82 (70-99) mg/dl POC Glucose 86 80 (70-99) mg/dl Estimat Average Glucose mg/dl Hemoglobin A1c (4.5-5.6) % Calcium 8.3 L (8.5-10.1) mg/dl Total Bilirubin 0.3 (0.2-1) mg/dl Direct Bilirubin < 0.1 (0-0.2) mg/dl AST 14 L (15-37) U/L ALT 31 (12-78) U/L Alkaline Phosphatase 54 (45-117) U/L Total Protein 6.0 L (6.4-8.2) gm/dl Albumin 2.6 L (3.4-5.0) gm/dl Globulin 3.4 (2.5-4.0) gm/dl Albumin/Globulin Ratio 0.8 L (0.9-2) Triglycerides 74 (0-150) mg/dl Cholesterol 129 (0-200) mg/dl LDL Cholesterol, Calc 73 mg/dl VLDL Cholesterol, Calc 15 mg/dl HDL Cholesterol 41 mg/dl Cholesterol/HDL Ratio 3 Lipase 612 H (73-393) U/L Vitamin B12 (211-911) pg/ml Folate (>5.38) ng/ml PG Care Time/CCT Total # of Minutes Spent Total Time Spent with Patient: Total time spent is greater than 50% in coordination of care (as documented) at patient's floor/unit and/or counseling patient: Coding Level of Care Code 60350 Subseq Hosp Care Lvl 3 Diagnoses Pancreatitis K85.90 Hypothyroidism E03.9 Hypertension I10 Hypersomnia with sleep apnea G47.10; G47.30 Hyperlipidemia E78.5 Diabetes E11.9 ADHD F90.9 Asthma J45.909 Macrocytosis D75.89 Hypokalemia E87.6 Dysuria R30.0 DVT prophylaxis Z29.9
[2019-07-02] MEDS ORDERED: Nursing to Pharmacy Communication ONE (11:20)
--- NOTE | 2019-07-02 15:03 | Progress Notes ---
DATE: 07/02/2019 The patient is sitting at bedside and tolerating clear liquids today with less abdominal pain, although it is still present but to a lesser degree. OBJECTIVE: Vital signs are normal. She is afebrile. Her lipase is down to 600 from 1200 yesterday. Lipid profile, TSH, liver profile, all normal. 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 There were no stones. She does not consume any alcohol. Calcium was normal. I did review her medication list and there are some case reports of losartan causing acute pancreatitis. The abdomen is box tender in the epigastric area. IMPRESSION: The patient has acute pancreatitis, etiology is not completely clear but review her medications indicates that losartan can potentially cause acute pancreatitis and I would eliminate this from her medication list and substitute it with something else in a different class. Will advance her diet to a low fat diabetic diet and if she tolerates this without worsening symptoms or backsliding then she can probably be discharged home tomorrow.
[2019-07-03] MEDS: LEVOTHYROXINE SODIUM 88 MCG TABLET PO SCH (06:07)
[2019-07-03] MEDS: LACTATED RINGER'S 1,000 ML IV SCH (06:38)
[2019-07-03 06:39] LABS: Basophils # (auto) 0.03 K/uL (0-0.2); Basophils % (auto) 0.3 %; Eosinophils # (auto) 0.33 K/uL (0-0.5); Eosinophils % (auto) 3.5 %; Hemoglobin 12.5 g/dL (12.0-16.0); Immature Granulocytes # (auto) 0.03 K/uL (0.00-0.02); Immature Granulocytes % (auto) 0.3 %; Lymphocytes # (auto) 4.15 K/uL (1.2-3.4); Lymphocytes % (auto) 43.9 %; Mean Corpuscular Hemoglobin 33.6 pg (25-34); Mean Corpuscular Hgb Conc 34.7 g/dL (32-36); Mean Corpuscular Volume 96.8 fL (80-100); Mean Platelet Volume 8.7 fL (7.4-10.4); Monocytes # (auto) 0.56 K/uL (0.11-0.59); Monocytes % (auto) 5.9 %; Neutrophils # (auto) 4.35 K/uL (1.4-6.5); Neutrophils % (auto) 46.1 %; Platelet Count 285 K/uL (130-400); RDW Coefficient of Variation 12.2 % (11.5-14.5); RDW Standard Deviation 43.6 fL (36.4-46.3); Red Blood Count 3.72 M/uL (4.2-5.4); White Blood Count 9.45 K/uL (4.8-10.8)
[2019-07-03 07:08] LABS: Albumin Level 2.9 gm/dl (3.4-5.0); BUN Creatinine Ratio 11.4 (10-20); Calcium 8.9 mg/dl (8.5-10.1); Creatinine Clr Calc Pharmacy 146.9 ml/min; Potassium 3.4 mmol/L (3.5-5.1)
[2019-07-03 07:11] LABS: Albumin Globulin Ratio 0.8 (0.9-2); Bilirubin,Total 0.3 mg/dl (0.2-1); Globulin 3.8 gm/dl (2.5-4.0); Total Protein 6.7 gm/dl (6.4-8.2)
[2019-07-03] MEDS ORDERED: POTASSIUM CHLORIDE 20 MEQ TABCR PO STA (07:31)
[2019-07-03] MEDS: DEXTROAMPHETAMINE/AMPHETAMINE ER 10 MG CAP PO SCH (08:08)
[2019-07-03] MEDS: INSULIN ASPART 100 UNITS/ML 3 ML PEN SC SCH ×2 (08:37→12:41)
--- NOTE | 2019-07-03 14:11 | Progress Notes ---
DATE: 07/03/2019 SUBJECTIVE: The patient continues to improve with decreased abdominal pain. She has been able to tolerate a low fat diet last evening and for breakfast and lunch today. Her amylase continues to fall. She is in the 400 range today. Her blood pressure is 130/72 off losartan, which is possibly the provoking factor for her pancreatitis. PHYSICAL EXAMINATION: GENERAL: The patient appears in no acute distress. VITAL SIGNS: Normal. CBC: Normal hemoglobin, white count and platelets. Liver profile is normal. Lipase 408. IMPRESSION: The patient's acute pancreatitis is improving; it is possible the losartan was etiologic but it is unclear. I have advised her to avoid in the future and with a normal blood pressure today she may not need anything for her blood pressure as a replacement. From a GI standpoint she can be discharged home on a low fat diet for the next 2 weeks with followup as an outpatient with her PCP.
--- NOTE | 2019-07-03 14:39 | Discharge Summary ---
Date of Service July 03, 2019 Admission HPI Per Admitting Provider 54 y/o F who was a direct admit for acute pancreatitis. Pt states that she woke around 3a on Sunday with n/v. She thought she had the flu at that time. She started to have epigastric pain yesterday and it became so severe that she went to the ED in [place]. She states her lipase was >3000. She had a CTAP that showed pancreatitits. She was given IVF and felt much improved, so it was determined that she could be d/c'd to home with PCP f/u. She was seen by PCP today and it was felt that she needed further tx for this. Pt states that she has not thrown up today, but she has not been able to eat anything. She does have epigastric pain, but nothing like yesterday. She has had several episodes of diarrhea yesterday and today. Pt denies fever, chest pain, LE pain or swelling. No prior hx of similar epigastric pain or hx of pancreatitis. Pt notes SOB when walking from the parking lot to the lobby, but no other SOB. Concern from Dr. Mas regarding pt using Victoza. Pt states last dosing was in the summer as she did not tolerate it. She states that after her first dose she had v/d, so it was stopped. She tried it again a few weeks later, but with similar issues. She was actually supposed to start it again this week, but had these sx and therefore did not. She states that her BS were increased recently. Pt notes that she has a cyst at the opening of her CBD that is monitored yearly. She states it was not visualized on CTAP at OSH. Admission Exam Per Admitting Provider Constitutional: WD/WN, vitals as above Eyes: normal visual cheney by confrontation and + anicteric sclerae Neck: normal visual inspection and trachea midline Respiratory: normal respiratory effort, lungs clear to auscultation Cardiovascular: Rate/Rhythm: regular rate and regular rhythm Gastrointestinal (Abdomen): Inspection/Auscultation: abdomen not distended Percussion/Palpation: + abdomen tender (epigastric) and abdomen soft Musculoskeletal: Head/Neck/Chest: normocephalic and head atraumatic negative for edema, peripheral pulses intact Skin: no rashes, warm and dry Neurologic: awake; not confused Speech / Cognition: normal speech Psychiatric: A+Ox3, euthymic affect Principal Diagnosis Acute Pancreatitis Discharge Exam Constitutional WD/WN, vitals as above no acute distress Neck trachea midline, no thyromegaly Respiratory normal respiratory effort, lungs clear to auscultation Cardiovascular RRR, no murmur, no edema Gastrointestinal (Abdomen) Inspection/Auscultation: abdomen normal to inspection and normal bowel sounds; abdomen not distended Percussion/Palpation: abdomen soft; no guarding and abdomen not rigid Musculoskeletal no cyanosis or clubbing, extremities motor strength 5/5 Skin no rashes, warm and dry Neurologic PERRL, EOMI, accommodation nl, no face palsy, no dysarthria Psychiatric A+Ox3, euthymic affect Discharge Data Allergies Allergy/AdvReac Type Severity Reaction Status Date / Time nitrofurantoin Allergy Intermediate hives Verified 07/07/19 11:56 bismuth subsalicylate AdvReac Intermediate ringing in Verified 07/07/19 11:56 ears / passed out Consultations 07/01/19 14:29 Consult Gastroenterology Routine 07/01/19 14:40 Consult Health Information Management Routine Ordered Studies 07/01/19 15:27 MR MRCP Routine Hospital Course (1) Pancreatitis: * Dx in [place] ED, d/c'd s/p IVF and feeling improved--some sx lingering in ED. Lipase reported >[address] A/p. * GI consulted * Lipase down to 612 from 1275 on admission. * Lipid panel without elevation in triglycerides, 74 wnl * IVF switched to LR in setting of pancreatitis. * TSH 2.89 * MRCP without evidence of stone. Unchanged cholecochocele, no dilation of CBD. Mild gb wall thickening, slightly worsened from previous exams. Should follow up with GI outpatient * Possible losartan induced, however patient has been taking this medication since May 2017 per outpatient record. Rec from GI to switch to alternative medication class. Patient has not received during this admission, and BP currently 122/72. * Patient may no longer require BP medication. * Of note, patient's children recently ill with viral illness -- possible that could have been viral pancreatitis (2) Hypothyroidism: * TSH 2.89. Stable. Continue levothyroxine 88mcg (3) Hypertension: * Discontinued losartan 50mg daily as possibly cause of pancreatitis (patient has not received since admission and BP stable, 130/72) * Follow up with PCP as outpatient --patient may no longer need anti- hypertensive. * Of note, she would also like to wean off her amephetamines, which could have contributed to her needing to be on HTN medications in the first place. (4) Hypersomnia with sleep apnea: * Continued CPAP (5) Hyperlipidemia: * Denies hx of dx. Lipids panel wnl (6) Diabetes: * Metformin only as current regimen with plans to try victoza again, but had not restarted. Of note, patient supposed to be taking metformin 500mg TWICE daily, but admitted she typically only takes this once daily * Held metformin while inpatient. SSI. * A1c slightly increased to 6.2 from 6.1 in 11/2018 --> should have repeat in 3 months. Counseled patient that she should attempt to take twice daily. Could also alternatively give 1000mg once daily (7) ADHD: * Chronic. Stable. Continued home amphetamine/dextroamphetamine * See above-- patient would like to discontinue/wean off -- to be discussed at follow up with PCP. (8) Asthma: * Stated environmentally induced, no hx of inhaler use for many years (9) Macrocytosis: * MCV >100. B12 high 1725. Folate >24.0 * MCV only occasionally >100. Discussed with patient -- it continues to be elevated on repeat lab work she may want to have hematology follow up as an outpatient. Instructed to continue to hold B12 supplementations, as clearly not deficient (10) Hypokalemia: * Low at 3.2 on 07/01- given 4 K riders. Repeat 3.6 (11) Dysuria: * Hx of chronic klebsiella in urine. Takes cipro x7d PRN dysuria. Last use was 2 weeks ago (12) Morbid obesity with BMI of 45.0-49.9, adult: * BMI 48.5 (13) DVT prophylaxis: * SCDs while inpatient Discharged home. Total Time Total Time Spent Total Time Spent (In Minutes): 60 Discharge Plan Discharge Items Patient Disposition: Home - Self-Care Reason For Visit: ACUTE PANCREATITIS Discharge Diagnosis: Acute Pancreatitis Condition on Discharge: Good Health Concerns: You have been hospitalized for an acute medical problem. During your stay at [facility], we have made an effort to correct the problem that brought you to the hospital while keeping you as comfortable as possible. Medications were used to bring your condition under control and your discharge instructions will include directions for any medications you should take after leaving the hospital. Please make sure you see your Primary Care Provider as part of your follow up plan. Activity: Resume your previous activity Non-emergency contact: Primary Care Provider and Lvn Call non-emergency contact if: you have any medication questions Follow-up/Referrals: Diego Montez DO [Primary Care Provider] - 07/07/19 12:00 pm (Follow up appt is on Friday 07/07 @ 1200 with Aziza AMBROCIO. Please arrive 15 minutes prior to appt time. If this date and time does not fit your schedule please call [phone] to reschedule. [address] ) Diet: Carb Consistent or DM2 and Low Fat Addtl Attending Provider Instructions: You have been hospitalized for acute pancreatitis. As there was no evidence of acute inflammation/stones of your gallbladder, it is unlikely that it is from gallstones, however one may have pass and caused an acute pancreatitis. -Additional reasons include elevated triglycerides, which yours were tested and are normal. -The other possibility is that it is from medications. One medication you were taking, losartan , has been implicated as a possible cause. -----For this reason, you should DISCONTINUE this medication. Your blood pressures have been well controlled while off of this medication and you may not need any additional medications to control your blood pressure. As discuss, your Adderall may cause your blood pressure to be elevated and you may want to discuss weaning off of this medication in the future, as you had expressed wanting to try to get off of this medication. You should avoid any alcohol or fatty foods for a minimum of two weeks. You should consume a low fat diet for the next two weeks. Of note, your A1c increased from 6.1 to 6.2%. You had previously discontinued Victoza, but you may very well be able to control your diabetes with metformin alone if you increase to the 1,000mg daily as prescribed. This dose can also be increased. If you have difficulty remembering to take this medication in the evening, you may take the 1,000mg at one time in the morning. You should follow up with GI (Dr. Mas) in the next two weeks. You should follow up with your primary care provider in the next 3-5 days. An appointment has been scheduled as above. Please return to the emergency room if you have worsening pain or for any symptoms that are concerning for you. It has been a pleasure being a part of the medical team providing for you while you have been in the hospital. Take care! Addtl Fan Runner Provider Instructions: The following information is from UpToDate: What is pancreatitis? * Pancreatitis is a condition that can cause severe belly pain. * The pancreas is an organ that makes hormones and juices that help break down food. Pancreatitis is the term for when this organ gets irritated or swollen. * Most people get over pancreatitis without any long-lasting effects. But a few people get very sick. What causes pancreatitis? There are many causes of pancreatitis. But most cases are caused by gallstones or alcohol abuse: * Gallstones Gallstones are hard lumps that form inside an organ called the gallbladder. Both the pancreas and the gallbladder drain into a single tube. If that tube gets clogged by a gallstone, neither of the organs can drain. When that happens, the fluids from both organs get backed up. That can cause pain. * Alcohol abuse People who drink too much alcohol for too long sometimes get alcohol-related pancreatitis. People with this form of pancreatitis usually start to feel pain 1 to 3 days after drinking a lot of alcohol or after they suddenly stop drinking. They usually also have nausea and vomiting. Pending Studies at Discharge: No Stand-Alone Forms: My [facility], Work/School Release (Inpt) Medications and DC Order Prescriptions: Continued Suprep Bowel Prep Kit 17.5-3.13-1.6 gram recon soln 177 ml PO DAILY Qty: 354 RF: 0 cholecalciferol (vitamin D3) 2,000 unit capsule 2,000 units PO DAILY Qty: 90 RF: 3 ibuprofen 800 mg tablet 800 mg PO TID PRN (Reason: pain) Qty: 270 RF: 3 lorazepam 0.5 mg tablet 0.5 mg PO Q6H PRN (Reason: anxiety) Qty: 30 RF: 0 Combivent Respimat 20-100 mcg/actuation mist 1 puffs INH QID PRN (Reason: sob) Qty: 4 RF: 3 phenazopyridine 100 mg tablet 100 mg PO TID PRN (Reason: pain) Qty: 90 RF: 0 (DME) pen needle, diabetic [BD Ultra-Fine Luzma Pen Needle] 32 gauge x 5/32" needle See Dose Instructions .ROUTE .MEDSUPPLY Qty: 100 RF: 3 (DME) Contour Next Test Strips strip See Dose Instructions .ROUTE .MEDSUPPLY Qty: 100 RF: 3 levothyroxine 88 mcg tablet 88 mcg PO DAILY Qty: 90 RF: 3 (DME) lancets [Microlet Lancet] misc See Dose Instructions .ROUTE .MEDSUPPLY Qty: 100 RF: 3 multivitamin tablet 1 tab PO DAILY Qty: 90 RF: 3 desloratadine 5 mg tablet 5 mg PO DAILY PRN (Reason: allergies) Qty: 90 RF: 3 metformin 500 mg tablet extended release 24 hr 500 mg PO BID Qty: 180 RF: 3 famotidine 40 mg tablet 40 mg PO DAILY PRN (Reason: Acid Reflux) RF: 0 ciprofloxacin HCl 500 mg tablet 500 mg PO BID PRN (Reason: Unknown) RF: 0 furosemide 20 mg tablet 20 mg PO DAILY PRN (Reason: Edema) RF: 0 Discontinued Victoza 2-Estrada 0.6 mg/0.1 mL (18 mg/3 mL) pen injector 0.6 mg SQ DAILY Qty: 6 RF: 2 losartan 50 mg tablet 50 mg PO DAILY Qty: 90 RF: 3 Discharge Orders: Discharge Order (Routine); Ordered 07/03/19 Ordered By: Lizette Wagner Admission Data Admit Date/Time: 07/01/19 14:00 Attending Provider: Bartolo Juarez Admit Provider: Kassandra Spencer Primary Care Provider: Diego Montez Other Providers: Nic Tripathi ; Bruno Mas Other Interventions: Discharge Summary Assessment (RN) Last Done: 07/03/19 14:55 DC Date/Time DO NOT enter until pt leaves facility: 07/03/19 16:05 Supervising Physician Co-Signing Physician Notes Attending Attestation and Discharge Note: Pt seen/examined, chart reviewed in detail, care plan d/w NIDHI Wagner. I agree w/ the jaimes components of her discharge documentation. 54yo female with T2DM who presented with acute pancreatitis. ?losartan induced? viral? other? Children had been sick with viral syndromes. No obvious gallstones or sludge on imaging studies. No etoh. Calcium normal. Trigs wnl. Clinically improved with IV fluids, diet restriction and time. Pain resolved w/ such. Evaluated by [facility] during the visit. They, too, were concerned about possible losartan induced pancreatitis. Recommended d/c of losartan at discharge. Recommended no etoh x 2 weeks. Recommended low-fat diet x 2 weeks. If she were to have recurrent pancreatitis - endoscopic u/s? Discharge exam: gen - obese, NAD eyes - no icterus heart - RRR lungs - cta b/l abd - soft NT ND BS+ no HSM ext - pulses 2+ b/l Bartolo Juarez MD Coding Level of Care Code D/C Day Management >30 mins Diagnoses Pancreatitis K85.90 Hypothyroidism E03.9 Hypertension I10 Hypersomnia with sleep apnea G47.10; G47.30 Hyperlipidemia E78.5 Diabetes E11.9 ADHD F90.9 Asthma J45.909 Macrocytosis D75.89 Hypokalemia E87.6 Dysuria R30.0 Morbid obesity with BMI of 45.0-49.9, adult E66.01; Z68.42 DVT prophylaxis Z29.9
== END 2019-07-03 16:05 | disposition home or self-care (01) | DRG 439 ==
LOC: 4W 14:00 → SUATTDRO 14:00
DX: Z88.1 Allergy status to other antibiotic agents; Z79.899 Other long term (current) drug therapy; R79.89 Other specified abnormal findings of blood chemistry; Z99.89 Dependence on other enabling machines and devices; Z88.8 Allergy status to other drugs, medicaments and biological substances; K85.30 Drug induced acute pancreatitis without necrosis or infection; E11.9 Type 2 diabetes mellitus without complications; T46.5X5A Adverse effect of other antihypertensive drugs, initial encounter; Z79.1 Long term (current) use of non-steroidal anti-inflammatories (NSAID); R91.1 Solitary pulmonary nodule; E03.9 Hypothyroidism, unspecified; G47.30 Sleep apnea, unspecified; D75.89 Other specified diseases of blood and blood-forming organs; I10 Essential (primary) hypertension; Q44.4 Choledochal cyst; E66.01 Morbid (severe) obesity due to excess calories; Z87.440 Personal history of urinary (tract) infections; Z87.09 Personal history of other diseases of the respiratory system; E87.6 Hypokalemia; F90.9 Attention-deficit hyperactivity disorder, unspecified type; G47.10 Hypersomnia, unspecified; Z87.891 Personal history of nicotine dependence; Z79.84 Long term (current) use of oral hypoglycemic drugs; Z68.42 Body mass index [BMI] 45.0-49.9, adult

== ENCOUNTER 2025-04-03 08:15 | Inpatient (IN) ==
--- NOTE | 2025-04-03 08:40 | Emergency Department Note ---
History of Present Illness General Chief complaint: Dental/Oral Stated complaint: INFECTED TOOTH Time Seen by Provider: 04/03/25 08:32 History of Present Illness Maximum Pain Intensity: 5 This is a 59-year-old female that presents to the emergency department via private vehicle with complaints of "infected tooth". The patient notes this past Sunday she began with discomfort, aching and swelling to the left side of the face/jaw area that has progressively worsened. She notes associated chills. No fevers, nausea or vomiting. No trouble breathing. Home Medications Medication Instructions Recorded Confirmed Type blood sugar diagnostic (Contour #100 ea 12/06/18 12/03/24 Rx Next Test Strips) lancets (Microlet Lancet) #100 ea 12/06/18 12/03/24 Rx compress.stocking,knee,reg,lrg #2 ea 11/06/19 12/03/24 Rx furosemide 20 mg tablet 20 mg PO DAILY PRN Edema #30 tabs 07/05/20 01/05/25 Rx albuterol sulfate 90 mcg/actuation 2 puff inhalation Q6H PRN 03/14/22 12/03/24 History aerosol inhaler Shortness Of Breath valacyclovir 1 gram tablet 1,000 mg PO DAILY PRN Flare 05/30/23 01/05/25 History (Valtrex) lorazepam 0.5 mg tablet 0.5 mg PO Q6H PRN anxiety #30 tabs 08/31/23 01/05/25 Rx metformin 500 mg tablet,extended 500 mg PO BID #180 tabs 01/01/24 01/05/25 Rx release 24 hr famotidine 40 mg tablet 40 mg PO DAILY #90 tabs 07/22/24 01/05/25 Rx estradiol 0.01% (0.1 mg/gram) 1 g vaginal 2XWK #42.5 grams 08/27/24 01/05/25 Rx vaginal cream bupropion HCl 300 mg 24 hr tablet, 300 mg PO QAM #90 tabs 11/01/24 01/05/25 Rx extended release (Wellbutrin XL) trospium 60 mg capsule,extended 60 mg PO DAILY #90 caps 11/12/24 01/05/25 Rx release 24 hr vibegron 75 mg tablet (Gemtesa) 0 mg PO DAILY 11/28/24 01/05/25 History CPAP Supplies #1 ea 12/18/24 Rx phenazopyridine 100 mg tablet 100 mg PO TID PRN pain 6 doses #30 02/07/25 Rx tabs levothyroxine 88 mcg tablet 88 mcg PO QAM #90 tabs 02/23/25 Rx losartan 25 mg tablet 25 mg PO DAILY #90 tabs 02/23/25 Rx fosfomycin tromethamine 3 gram 1 packet PO Q3D #2 ea 03/05/25 Rx oral packet Allergies Allergy/AdvReac Type Severity Reaction Status Date / Time bismuth subsalicylate Allergy Intermediate ringing in Verified 01/05/25 14:52 ears / passed out influenza virus vaccine ts Allergy Intermediate Rash Unverified 01/05/25 14:52 [id number] (36 mos,up) [From Fluarix] Past Med/Surg History Problem List (Updated 04/03/25 @ 17:33 by LOLLY Barrera) Dental infection Facial cellulitis Sleep apnea JOSEFINA on CPAP Sore throat Sinusitis Anxiety Depression Cellulitis of left anterior lower leg Left foot pain Rectal bleeding Cervical lymphadenopathy Elevated parathyroid hormone Serum calcium elevated Hoarseness Claudication Post-menopausal Myalgia Dysphagia Viral URI with cough Diabetes mellitus, type 2 Skin candidiasis Varicose veins of both lower extremities Numbness and tingling of both feet Left lumbar radiculopathy Lumbar pain Right upper quadrant pain Diarrhea Urinary incontinence, mixed Bradycardia Dyspnea on exertion Cardiomegaly RSV (acute bronchiolitis due to respiratory syncytial virus) Chest pain Cough Choledochal cyst Screening for condition Pap smear for cervical cancer screening Situational depression Fatigue Body aches Stuffy and runny nose Fever Cough Chronic venous insufficiency Lower extremity venous stasis Frequent urination Asymptomatic menopause Thoracolumbar back pain Pulmonary nodule Right upper quadrant pain Close exposure to COVID-19 virus Screening for condition Pericardial cyst Encounter for pre-operative examination Diabetes Macrocytosis Morbid obesity with BMI of 45.0-49.9, adult Elevated blood sugar PCOS (polycystic ovarian syndrome) Recurrent UTI Incidental lung nodule, > 3mm and < 8mm Hepatic steatosis Pancreatitis 06/[address] [facility] Vitamin D deficiency Vitamin B12 deficiency Migraines Metabolic syndrome Liver lesion Leg swelling IBS (irritable bowel syndrome) Hypothyroidism Hypertension no longer on meds Hypersomnia with sleep apnea cpap Hyperlipidemia Elevated liver enzymes Depression Asthma inhaler prn ADHD Medical History Morbid obesity with BMI of 50.0-59.9, adult Anxiety Recurrent UTI Hyperinsulinemia Surgical History History of carpal tunnel surgery of right wrist History of repair of anterior cruciate ligament of left knee History of total hysterectomy with bilateral salpingo-oophorectomy (BSO) History of wisdom tooth extraction Family History Grandfather (Paternal) Myocardial infarction Father Lung cancer Hypertension Family history of diabetes mellitus Mother Hypertension Grandmother (Paternal) Family history of diabetes mellitus Grandmother (Maternal) Family hx of colon cancer Other No family history of adverse response to anesthesia Denies family history of Ovarian cancer Prostate cancer Breast cancer Stroke Social History (Updated 11/28/24 @ 09:07 by Smith Brannon PA-C) Smoking Status: Former smoker Tobacco Type: Cigarettes Age Started Using Tobacco: 16; Age Quit Using Tobacco: 42; packs per day: 0.75; Cigarettes Per Day: 10; Smoking End Date: 15yrs ago; Second Hand Exposure: No; Do You Dip or Chew Tobacco: No; Hx Alcohol Use: No Hx Substance Use: No Preferred Language: Slovak Communication Ability: Effective Business Area Director Required: No Beliefs That Will Affect Care: None marital status: Current Living Situation: Alone current occupational status: employed current occupation: [employer] Feels Safe at Home: Yes Childhood Exposure to Second-Hand Smoke: Yes caffeine: Yes (coffee ) Dental Care, Regularly: Yes Physical Activity Frequency: Does not Exercise Seatbelt Use: always Sunscreen Use: Yes (occassionally) Assistive Devices: Glasses Review of Systems A total of 10 systems reviewed and were otherwise negative Physical Exam Vital Signs Vital Signs - 24 hr 04/03/25 08:21 04/03/25 09:00 04/03/25 09:17 Temperature 36.6 C Temperature Source Temporal Artery Scan Pulse Rate 56 L 54 L Pulse Rate [Apical] 53 L Respiratory Rate 18 16 Respiratory Effort / Characteristics Non-Labored Spontaneous Non-Labored Spontaneous Respiratory Depth Normal Normal Respiratory Pattern Regular Blood Pressure 148/64 H Blood Pressure [Right Arm] 142/66 H Blood Pressure Mean 92 Blood Pressure Mean [Right Arm] 91 Pulse Oximetry 96 96 Oxygen Delivery Method Room Air Room Air Sepsis Recent Fever Within 48 Hours No Sepsis New/Unexplained Change in Mental Status No Sepsis Action Taken by Nursing No Action Required 04/03/25 11:00 Temperature Temperature Source Pulse Rate Pulse Rate [Apical] 63 Respiratory Rate 20 Respiratory Effort / Characteristics Respiratory Depth Respiratory Pattern Blood Pressure Blood Pressure [Right Arm] 153/89 H Blood Pressure Mean Blood Pressure Mean [Right Arm] 110 Pulse Oximetry 97 Oxygen Delivery Method Room Air Sepsis Recent Fever Within 48 Hours Sepsis New/Unexplained Change in Mental Status Sepsis Action Taken by Nursing VITAL SIGNS - Vital signs and nursing notes were reviewed. Stable and afebrile. GENERAL -59-year-old female appearing her stated age who is in no acute distress. Communicates well with provider and answers questions appropriately. SKIN -erythema and edema noted to the left mandibular region/submandibular region. No fluctuance. No crepitus. HEAD - NC/AT. EYES - PERRL with EOMI bilaterally. Sclera anicteric. EARS - No deformities of external structures noted on gross examination bilaterally. NOSE - Midline and without cyanosis. No epistaxis or purulent drainage noted. S MOUTH/OROPHARYNX - Without perioral cyanosis. Buccal mucosa pink and moist and without leukoplakia. Tongue midline with equal elevation of palate bilaterally. Mild intraoral edema noted to the left buccal surface. Fair dentition noted. NECK - Neck with FROM. Tenderness and edema to the left mandibular/submandibular region. Left greater than right cervical lymphadenopathy noted. No nuchal rigidity. LUNGS - Chest wall symmetric without accessory muscle use, intercostals retractions, or central cyanosis. Normal vesicular breath sounds CTA B/L. No wheezes, rales, or rhonchi appreciated. CARDIAC -regular rate and rhythm. No murmur EXTREMITIES - +5/5 strength noted in UE/LE bilaterally. NEUROLOGIC - Cranial nerves II through XII grossly intact. PSYCH -alert, oriented and pleasant on exam Course Administered Medications Acetaminophen (Acetaminophen 325 Mg Tab) 650 mg PO Q4H PRN PRN Reason: Pain or Fever Stop: 05/03/25 12:45 Last Admin: 04/03/25 21:53 Dose: 650 mg Documented By: Admin: 04/03/25 17:44 Dose: 650 mg Documented By: Admin: 04/03/25 13:49 Dose: 650 mg Documented By: cad Ampicillin Sodium/Sulbactam Sodium (Unasyn) 3,000 mg in 100 mls @ 200 mls/hr IV Q6H [place] Stop: 04/10/25 15:59 Last Infusion: 04/03/25 21:53 Dose: Infused Documented By: Admin: 04/03/25 21:17 Dose: 200 mls/hr Documented By: Infusion: 04/03/25 16:31 Dose: Infused Documented By: Admin: 04/03/25 15:46 Dose: 200 mls/hr Documented By: SAMI Insulin Aspart (Insulin Aspart Per Unit Charge) 0 units SC ACHS [place] Stop: 05/03/25 17:44 Last Admin: 04/03/25 19:43 Dose: Not Given Documented By: SAUL Co-signed By: WALE Admin: 04/03/25 18:02 Dose: Not Given Documented By: SAMI Discontinued Medications Ampicillin Sodium/Sulbactam Sodium (Unasyn) 3,000 mg in 100 mls @ 200 mls/hr IV NOW STA Stop: 04/03/25 10:05 Last Infusion: 04/03/25 10:25 Dose: Infused Documented By: gerard Admin: 04/03/25 09:55 Dose: 200 mls/hr Documented By: uziel Ioversol (Optiray 320 100ml) 94 ml IV ONCE ONE Stop: 04/03/25 10:31 Last Admin: 04/03/25 10:30 Dose: 94 ml Documented By: EDEL Morphine Sulfate (Morphine Sulfate 2 Mg/Ml Carp) 2 mg IV NOW STA Stop: 04/03/25 11:13 Last Admin: 04/03/25 11:26 Dose: 2 mg Documented By: uziel Ondansetron HCl (Ondansetron Inj 2 Mg/Ml 2 Ml Vial) 4 mg IV NOW STA Stop: 04/03/25 11:13 Last Admin: 04/03/25 11:26 Dose: 4 mg Documented By: uziel Medical Decision Making Laboratory Data 04/03/25 09:30 04/03/25 09:30 Lab Results 04/03/25 Range/Units 09:30 WBC 11.46 H (4.8-10.8) K/ul RBC 4.17 L (4.20-5.40) M/uL Hgb 13.6 (12.0-16.0) g/dL Hct 41.0 (37.0-47.0) % MCV 98.3 (80.0-100.0) fL MCH 32.6 (25.0-34.0) pg MCHC 33.2 (32.0-36.0) g/dL RDW Std Deviation 44.6 (36.4-46.3) fL RDW Coeff of Dorcas 12.2 (11.5-14.5) % Plt Count 284 (130-400) K/uL MPV 9.0 L (9.4-12.4) fL Immature Gran % (Auto) 0.3 % Neut % (Auto) 69.0 % Lymph % (Auto) 20.9 % Grundy % (Auto) 7.7 % Eos % (Auto) 1.8 % Baso % (Auto) 0.3 % Neut # (Auto) 7.91 H (1.40-6.50) K/uL Lymph # (Auto) 2.39 (1.20-3.40) K/uL Grundy # (Auto) 0.88 H (0.11-0.59) K/uL Eos # (Auto) 0.21 (0.00-0.50) K/uL Baso # (Auto) 0.04 (0.00-0.20) K/uL Immature Gran # (Auto) 0.03 (0.01-0.20) K/uL Sodium 138 (136-145) mmol/L Potassium 3.9 (3.5-5.1) mmol/L Chloride 106 (98-107) mmol/L Carbon Dioxide 25 (21-32) mmol/L Anion Gap 7 (3-11) BUN 11 (6-23) mg/dl Creatinine 0.66 (0.6-1.2) mg/dl Est Cr Clr Drug Dosing 105.9 ml/min eGFR 100.99 BUN/Creatinine Ratio 16.7 (10-20) Glucose 96 (70-99(Fasting)) mg/dl Lactate 0.8 (0.4-2.0) mmol/L Calcium 10.1 (8.6-10.3) mg/dl Total Bilirubin 0.6 (0.2-1.0) mg/dl AST 13 (13-39) U/L ALT 16 (7-52) U/L Alkaline Phosphatase 58 (34-104) U/L Total Protein 7.5 (6.0-8.3) gm/dl Albumin 4.2 (3.4-5.0) gm/dl Globulin 3.3 (2.5-4.0) gm/dl Albumin/Globulin Ratio 1.3 (0.9-2) Procalcitonin 0.04 (0-0.5) ng/ml TSH 3.203 (0.300-4.500) uIu/ml Imaging Data Radiologist's Impression: Soft Tissue Neck CT 04/03/25 09:12 CT OF THE NECK WITH IV CONTRAST CLINICAL HISTORY: Neck edema, pain, dental infection. COMPARISON STUDY: No previous studies for comparison. TECHNIQUE: Following IV administration of 94 mL of Optiray, helical axial images of the neck were obtained. Sagittal and coronal reconstructions were viewed. Automated exposure control was utilized for the study. A dose lowering technique was utilized adhering to the principles of ALARA. CT DOSE: 635.53 mGy.cm FINDINGS: Visualized portions of the brain parenchyma are unremarkable. Mastoid air cells are clear. There is mild mucosal thickening within the right sphenoid and ethmoid sinuses. No orbital abnormality is identified. Major vasculature of the neck is patent. Parotid and submandibular glands are normal. Epiglottis is normal. Note is made of a periapical abscess of the left first mandibular molar (ADA #19). There is a tiny adjacent rim-enhancing fluid collection along the anterior aspect of the mandible which measures 0.8 x 0.2 cm. Moderate adjacent inflammation is present, including thickening of the platysma. There is skin thickening. No additional fluid collections. No soft tissue gas. No prevertebral edema. Visualized lung apices are unremarkable. Prominent cervical lymph nodes are likely reactive. Multiple dental amalgams are incidentally noted. IMPRESSION: Periapical abscess of the left first mandibular molar with a tiny adjacent abscess overlying the mandible. Moderate adjacent inflammation and skin thickening consistent with cellulitis. ACT 112: Negative or not required by law. Electronically signed by: Jose Enrique Redman M.D. 04/03/2025 10:51 AM MDM Narrative Patient was seen and evaluated as above in room B11a. Review was performed of nursing notes and vital signs. I did review pertinent previous visits and patient history. After obtaining a thorough history and physical examination the above work up was performed. Patient presents to us today for evaluation of the above symptoms. She has left-sided facial pain and swelling. This appears to be of dental origin. There is a fair amount of erythema and edema to the mandibular/submandibular area on the left. There is no drooling, stridor, trismus, wheezing or tripoding. Normal phonation. Options of care were discussed with the patient. IV access was established. Labs were drawn. There is leukocytosis 11.46. No concerning anemia. No evidence of kidney or liver failure. Procalcitonin within normal range making sepsis less likely. TSH reveals euthyroid state. CT soft tissue neck as above. Periapical abscess of the left first mandibular molar with a tiny adjacent abscess overlying the mandible. Moderate adjacent inflammation and skin thickening consistent with cellulitis. IV Unasyn was ordered. IV analgesia and antiemetics also ordered. At this time I do believe that further evaluation and management in the inpatient setting is warranted. Case discussed with the hospitalist service. Please refer to further documentation regarding her stay. GCS: 15 In the evaluation and treatment of this patient, the following differential diagnoses were considered: Periapical Abscess, Osteonecrosis of the Jaw, Dental Fracture, Dental Caries, Sarbjit's Angina, Vincent's Angina, Facial Cellulitis, among others. Impression & Plan Facial cellulitis, Dental infection Discharge Plan Visit Data Chief Complaint: Dental/Oral Stated Complaint: INFECTED TOOTH ED Provider: Nic Fuller ED Midlevel Provider: Smith Brannon Discharge Problem: Facial cellulitis, Dental infection Patient Disposition: Admitted As Inpatient Condition: Good Discharge Instructions Interventions: ED Discharge Assessment Last Done: 04/03/25 14:22
[2025-04-03] MEDS: AMPICILLIN/SULBACTAM SOD 3,000 MG/100 ML BAG IV STA (09:55)
[2025-04-03 09:58] LABS: Hematocrit (blood only) 41.0 % (37.0-47.0); Hemoglobin 13.6 g/dL (12.0-16.0); Immature Granulocytes # (auto) 0.03 K/uL (0.01-0.20); Immature Granulocytes % (auto) 0.3 %; Mean Corpuscular Hemoglobin 32.6 pg (25.0-34.0); Mean Corpuscular Volume 98.3 fL (80.0-100.0); Platelet Count 284 K/uL (130-400); RDW Standard Deviation 44.6 fL (36.4-46.3); Red Blood Count 4.17 M/uL (4.20-5.40); White Blood Count 11.46 K/ul (4.8-10.8)
[2025-04-03 10:16] LABS: Alanine Aminotransferase 16.0 U/L (7-52); Albumin Globulin Ratio 1.3 (0.9-2); Albumin Level 4.2 gm/dl (3.4-5.0); Alkaline Phosphatase 58.0 U/L (34-104); Anion Gap 7.0 (3-11); Bilirubin,Total 0.6 mg/dl (0.2-1.0); Blood Urea Nitrogen 11.0 mg/dl (6-23); Calcium 10.1 mg/dl (8.6-10.3); Carbon Dioxide 25.0 mmol/L (21-32); Chloride 106.0 mmol/L (98-107); Creatinine Clr Calc Pharmacy 105.9 ml/min; Globulin 3.3 gm/dl (2.5-4.0); Glucose 96.0 mg/dl (70-99(Fasting)); Potassium 3.9 mmol/L (3.5-5.1); Sodium 138.0 mmol/L (136-145); Total Protein 7.5 gm/dl (6.0-8.3)
[2025-04-03] MEDS: OPTIRAY 320 100ml IV ONE (10:30)
--- NOTE | 2025-04-03 10:53 | CT Scan Report ---
CT OF THE NECK WITH IV CONTRAST CLINICAL HISTORY: Neck edema, pain, dental infection. COMPARISON STUDY: No previous studies for comparison. TECHNIQUE: Following IV administration of 94 mL of Optiray, helical axial images of the neck were ob tained. Sagittal and coronal reconstructions were viewed. Automated exposure control was utilized f or the study. A dose lowering technique was utilized adhering to the principles of ALARA. CT DOSE: 635.53 mGy.cm FINDINGS: Visualized portions of the brain parenchyma are unremarkable. Mastoid air cells are clear. There is mild mucosal thickening within the right sphenoid and ethmoid sinuses. No orbital abnormali ty is identified. Major vasculature of the neck is patent. Parotid and submandibular glands are arielle l. Epiglottis is normal. Note is made of a periapical abscess of the left first mandibular molar (ADA #19). There is a tiny adjacent rim-enhancing fluid collection along the anterior aspect of the elan ble which measures 0.8 x 0.2 cm. Moderate adjacent inflammation is present, including thickening of t he platysma. There is skin thickening. No additional fluid collections. No soft tissue gas. No prever tebral edema. Visualized lung apices are unremarkable. Prominent cervical lymph nodes are likely reac tive. Multiple dental amalgams are incidentally noted. IMPRESSION: Periapical abscess of the left first mandibular molar with a tiny adjacent abscess overl james the mandible. Moderate adjacent inflammation and skin thickening consistent with cellulitis. ACT 112: Negative or not required by law. Electronically signed by: Jose Enrique Rdeman M.D. 04/03/2025 10:51 AM
[2025-04-03] MEDS: ONDANSETRON INJ 2 MG/ML 2 ML VIAL IV STA (11:26)
[2025-04-03] MEDS: MoRPHine SULFATE 2 MG/ML CARP IV STA (11:26)
[2025-04-03] MEDS ORDERED: POLYETHYLENE (MIRALAX) 17 GM PACK PO PRN (12:46)
[2025-04-03] MEDS ORDERED: MELATONIN 3 MG TAB PO PRN (12:46)
[2025-04-03] MEDS ORDERED: ONDANSETRON INJ 2 MG/ML 2 ML VIAL IV PRN (12:46)
[2025-04-03] MEDS ORDERED: MoRPHine SULFATE 4 MG/ML 1 ML CARP\\VIAL IV PRN (12:50)
[2025-04-03] MEDS: ACETAMINOPHEN 325 MG TAB PO PRN (13:49)
[2025-04-03] MEDS: AMPICILLIN/SULBACTAM SOD 3,000 MG/100 ML BAG IV SCH (15:46)
--- NOTE | 2025-04-03 16:21 | History & Physical Report ---
"Date of Service April 03, 2025 Assessment & Plan (1) Dental infection: (2) Facial cellulitis: (3) Hypertension: (4) Sleep apnea: (5) Diabetes mellitus, type 2: (6) Hypothyroidism: (7) Depression: Plan Patient is a 59-year-old female with past medical history significant for h ypothyroidism, hypertension, hyperlipidemia, post menopausal, urinary incontinence/mixed, chronic venous insufficiency, PCOS, hepatic steatosis, vitamin D deficiency, vitamin B12 deficiency, depression, and type 2 diabetes presents with complaints of a left-sided molar pain that started 2 days ago. She has had increased swelling to the left side of her face over the course of the past 48 hours progressing from a golf ball sized swelling to more marked facial swelling extending into the left submandibular area. She has been without any symptoms of Sarbjit's angina-->>no tongue swelling or tongue elevation, difficulty swallowing, or concerns related to voice articulation. ER workup unremarkable in regards to concerns for overt infection as CBC is without marked leukocytosis with white blood cells at 11.46, pro-catalina 0.04, lactate 0.8. She presented to the emergency department without fever/hypotension/tachycardia. Blood cultures drawn in the emergency department. She did receive 1 dose of Unasyn 3 g IV in the emergency department. CT of the neck with IV contrast revealed periapical abscess of the left first mandibular molar with adjacent abscess overlying the mandible, moderate adjacent inflammation and skin thickening consistent with cellulitis. ##Dental abcess/facial cellulitis -admit to med [facility] for close monitoring -cont pulse oximetry -Unasyn 3Gm IV Q6H -Tylenol po PRN pain, Morphine IV prn pain control -full liquid diet -consult maxillofacial surgery-->case discussed with Dr. Wilson with imaging review, will see patient in the am -trend CBC, CRP -BCX2 pending ##T2DM -hold Metformin -last HbA1C 6.0 05/20/24, check with am labs -BSG ACHS with pharm consult for management ##HTN -cont ARB as Cr 0.66 ##Depression|anxiety -cont bupropion hcl 300mg daily -cont lorazepam 0.5mg po Q6H prn ##hypothyroidism -TSH -cont levothyroxine 88mcg po daily ##sleep apnea -CPAP as tolerated considering facial swelling DVT prophylaxis: SCDs, low risk Diet: Full liquid Disposition: Admit to med-[facility] CODE STATUS: FULL CODE Admission and Anticipated Discharge Date Admission Date: April 03, 2025 History of Present Illness Chief Complaint: Infected tooth and left sided facial pain Primary Care Provider: Diego Montez DO Patient is a 59-year-old female with past medical history significant for hypothyroidism, hypertension, hyperlipidemia, post menopausal, urinary incontinence/mixed, chronic venous insufficiency, PCOS, hepatic steatosis, vitamin D deficiency, vitamin B12 deficiency, depression, and type 2 diabetes presents with complaints of a left-sided molar pain that started 2 days ago. She has had increased swelling to the left side of her face over the course of the past 48 hours progressing from a golf ball sized swelling to more marked facial swelling extending into the left submandibular area. Also reports her left sided upper and lower lip have been slightly swollen as well. She denies any recent injury to the left molar or fracturing. States she has had some mild discomfort to the left molar over the course of the past year that has waxed and waned. She has attempted to secure an appointment with a dentist to address this issue but has had difficulty secondary to insurance purposes. She denies fever, chills, tongue swelling, dysphagia, shortness of breath/stridor, drooling, palpitations, chest pain. She does not smoke or drink ETOH. After full discussion regarding resuscitative status while being hospitalized the patient states she wishes to be a full code. Allergies Allergy/AdvReac Type Severity Reaction Status Date / Time bismuth subsalicylate Allergy Intermediate ringing in Verified 01/05/25 14:52 ears / passed out influenza virus vaccine ts Allergy Intermediate Rash Unverified 01/05/25 14:52 [id number] (36 mos,up) [From Fluarix] Home Medications Medication Instructions Recorded Confirmed Type blood sugar diagnostic (Contour #100 ea 12/06/18 12/03/24 Rx Next Test Strips) lancets (Microlet Lancet) #100 ea 12/06/18 12/03/24 Rx compress.stocking,knee,reg,lrg #2 ea 11/06/19 12/03/24 Rx furosemide 20 mg tablet 20 mg PO DAILY PRN Edema #30 tabs 07/05/20 01/05/25 Rx albuterol sulfate 90 mcg/actuation 2 puff inhalation Q6H PRN 03/14/22 12/03/24 History aerosol inhaler Shortness Of Breath lorazepam 0.5 mg tablet 0.5 mg PO Q6H PRN anxiety #30 tabs 08/31/23 01/05/25 Rx metformin 500 mg tablet,extended 500 mg PO BID #180 tabs 01/01/24 01/05/25 Rx release 24 hr famotidine 40 mg tablet 40 mg PO DAILY #90 tabs 07/22/24 01/05/25 Rx estradiol 0.01% (0.1 mg/gram) 1 g vaginal 2XWK #42.5 grams 08/27/24 01/05/25 Rx vaginal cream bupropion HCl 300 mg 24 hr tablet, 300 mg PO QAM #90 tabs 11/01/24 01/05/25 Rx extended release (Wellbutrin XL) trospium 60 mg capsule,extended 60 mg PO DAILY #90 caps 11/12/24 01/05/25 Rx release 24 hr vibegron 75 mg tablet (Gemtesa) 0 mg PO DAILY 11/28/24 01/05/25 History CPAP Supplies #1 ea 12/18/24 Rx phenazopyridine 100 mg tablet 100 mg PO TID PRN pain 6 doses #30 02/07/25 Rx tabs levothyroxine 88 mcg tablet 88 mcg PO QAM #90 tabs 02/23/25 Rx losartan 25 mg tablet 25 mg PO DAILY #90 tabs 02/23/25 Rx fosfomycin tromethamine 3 gram 1 packet PO Q3D #2 ea 03/05/25 Rx oral packet amoxicillin 875 mg-potassium 1 tab PO BID 7 days #14 tabs 04/05/25 04/07/25 Rx clavulanate 125 mg tablet tramadol 50 mg tablet 50 mg PO BID PRN pain #6 tabs 04/05/25 04/07/25 Rx valacyclovir 1 gram tablet 1,000 mg PO DAILY PRN Flare #7 tabs 04/06/25 Rx (Valtrex) Past Med/Surg History Problem List (Updated 04/05/25 @ 07:22 by Ramone Higgins MD) Dental infection Facial cellulitis Sleep apnea Sore throat Sinusitis Cellulitis of left anterior lower leg Left foot pain Rectal bleeding Cervical lymphadenopathy Elevated parathyroid hormone Serum calcium elevated Hoarseness Post-menopausal Myalgia Dysphagia Viral URI with cough Skin candidiasis Varicose veins of both lower extremities Numbness and tingling of both feet Left lumbar radiculopathy Lumbar pain Right upper quadrant pain Diarrhea Urinary incontinence, mixed Bradycardia Dyspnea on exertion Cardiomegaly RSV (acute bronchiolitis due to respiratory syncytial virus) Chest pain Cough Choledochal cyst Screening for condition Pap smear for cervical cancer screening Situational depression Fatigue Body aches Stuffy and runny nose Fever Cough Chronic venous insufficiency Lower extremity venous stasis Frequent urination Asymptomatic menopause Thoracolumbar back pain Pulmonary nodule Right upper quadrant pain Close exposure to COVID-19 virus Screening for condition Pericardial cyst Encounter for pre-operative examination Diabetes Macrocytosis Morbid obesity with BMI of 45.0-49.9, adult Elevated blood sugar PCOS (polycystic ovarian syndrome) Recurrent UTI Incidental lung nodule, > 3mm and < 8mm Hepatic steatosis Pancreatitis 06/2019 hospitalized at [facility] Vitamin D deficiency Vitamin B12 deficiency Migraines Metabolic syndrome Liver lesion Leg swelling IBS (irritable bowel syndrome) Hypothyroidism Hypertension no longer on meds Hypersomnia with sleep apnea cpap Hyperlipidemia Elevated liver enzymes Depression ADHD Medical History (Updated 04/05/25 @ 07:22 by Ramone Higgins MD) Asthma inhaler prn Diabetes mellitus, type 2 Claudication Depression Anxiety JOSEFINA on CPAP Morbid obesity with BMI of 50.0-59.9, adult Recurrent UTI Hyperinsulinemia Surgical History (Updated 04/07/25 @ 15:10 by Elizabeth Odom RN) History of incision and drainage (04/05/25) Incision and Drainage of Left Face/Jaw with Removal of Tooth #19.(Left) - Vincent Wilson, DMD History of carpal tunnel surgery of right wrist History of repair of anterior cruciate ligament of left knee History of total hysterectomy with bilateral salpingo-oophorectomy (BSO) History of wisdom tooth extraction Family History Grandfather (Paternal) Myocardial infarction Father Lung cancer Hypertension Family history of diabetes mellitus Mother Hypertension Grandmother (Paternal) Family history of diabetes mellitus Grandmother (Maternal) Family hx of colon cancer Other No family history of adverse response to anesthesia Denies family history of Ovarian cancer Prostate cancer Breast cancer Stroke Social History (Updated 11/28/24 @ 09:07 by Smith Brannon PA-C) Smoking Status: Former smoker Tobacco Type: Cigarettes Age Started Using Tobacco: 16; Age Quit Using Tobacco: 42; packs per day: 0.75; Cigarettes Per Day: 10; Second Hand Exposure: No; Do You Dip or Chew Tobacco: No; Hx Alcohol Use: No Hx Substance Use: No Preferred Language: Scottish Communication Ability: Effective Material Controller Required: No Beliefs That Will Affect Care: None marital status: Current Living Situation: Alone current occupational status: employed current occupation: [employer] Feels Safe at Home: Yes Childhood Exposure to Second-Hand Smoke: Yes caffeine: Yes (coffee ) Dental Care, Regularly: Yes Physical Activity Frequency: Does not Exercise Seatbelt Use: always Sunscreen Use: Yes (occassionally) Assistive Devices: Glasses Review of Systems Review of Systems: All systems reviewed & are unremarkable except as noted in Subjective Physical Exam Physical Exam: GENERAL APPEARANCE: A&O. Sitting comfortably on stretcher. NAD. SKIN: Normal color without rashes or lesions. Normal turgor. HEENT: Head AT/NC. Buccal mucosa is moist and pink. Slight swelling to left upper/lower lip. No tongue swelling, tongue elevation. Uvula midline and non- deviated. Left molar #19 with darkening, no drainage, slight erythema surrounding area. Left facial area with swelling extending into left submandibular area with slight erythema and no streaking of skin. NECK: No jugular venous distention. No thyroid enlargement. There is no lymphadenopathy. HEART: RRR without m/g/r. LUNGS: Normal inspiratory effort. CTA without w/r/r, no stridor. ABDOMEN: No guarding or rigidity. Normoactive BS in all four quadrants. Abdomen soft and NT. MSK: No bony gross/deformities throughout. ROM intact. EXTREMITIES: No edema, No peripheral cyanosis. Neuro: CN 2-12 grossly intact. No focal neuro deficits PSYCHIATRIC: Normal affect. Eye contact is good. Speech is normal rate and content. Responses are appropriate. Results & Data Results & Data Vital Signs (Past 12 Hours) Vital Signs Temp Pulse Pulse Resp BP BP Pulse Ox 04/03/25 14:50 37.3 C 60 18 166/85 H 95 04/03/25 14:04 66 23 165/77 H 97 04/03/25 13:14 04/03/25 13:14 60 17 171/83 H 97 04/03/25 11:00 63 20 153/89 H 97 04/03/25 09:17 54 L 04/03/25 09:00 53 L 16 142/66 H 96 04/03/25 08:21 36.6 C 56 L 18 148/64 H 96 Pulse Ox O2 Del Method O2 Del Method 04/03/25 14:50 Room Air 04/03/25 14:04 Room Air 04/03/25 13:14 98 Room Air 04/03/25 13:14 Room Air 04/03/25 11:00 Room Air 04/03/25 09:17 04/03/25 09:00 Room Air 04/03/25 08:21 Room Air Laboratory Results Labs reviewed: CBC, BMP, pro-catalina, lactate Code Status & VTE Plan VTE Prophylaxis Plan VTE Prophylaxis will be ordered: Yes PG Care Time/CCT Total # of Minutes Spent Total Time Spent with Patient: Total time spent is greater than 50% in coordination of care (as documented) at patient's floor/unit and/or counseling patient: Coding Level of Care Code 12783 INT INP/OBS CARE 3/75MIN Diagnoses Dental infection K04.7 Facial cellulitis L03.211 Essential hypertension I10 Hypertension type: essential hypertension Sleep apnea G47.30 Diabetes mellitus, type 2 E11.9 Hypothyroidism, unspecified type E03.9 Hypothyroidism type: unspecified Depression F32.A (3) Hypertension Hypertension type: essential hypertension Qualified Code(s): I10 - Essential (primary) hypertension (6) Hypothyroidism Hypothyroidism type: unspecified Qualified Code(s): E03.9 - Hypothyroidism, unspecified"
[2025-04-03] MEDS ORDERED: CARBOHYDRATES FOR HYPOGLYCEMIA PO PRN (17:03)
[2025-04-03] MEDS ORDERED: GLUCOSE 10 TAB/TUBE PO PRN (17:03)
[2025-04-03] MEDS ORDERED: PHARMACY GLYCEMIC MGMT CONSULT PRN (17:03)
[2025-04-03] MEDS ORDERED: GLUCOSE 40% GEL 15 GM TUBE PO PRN (17:03)
[2025-04-03] MEDS ORDERED: GLUCAGON FOR INJ 1 MG VIAL SQ PRN (17:03)
[2025-04-03] MEDS ORDERED: DEXTROSE 50% 50 ML SYRINGE IV PRN (17:03)
[2025-04-03] MEDS ORDERED: LORazepam 0.5 MG TAB PO PRN (17:18)
[2025-04-03] MEDS: INSULIN ASPART PER UNIT CHARGE SC SCH (18:02)
[2025-04-03 18:52] LABS: Thyroid Stimulating Hormone 3.203 uIu/ml (0.300-4.500)
--- NOTE | 2025-04-03 21:57 | Oral/Maxillofacial Consult ---
Date of Consultation April 03, 2025 Assessment & Plan (1) JOSEFINA on CPAP: (2) Sore throat: (3) Sinusitis: (4) Sleep apnea: (5) Facial cellulitis: (6) Dental infection: History of Present Illness Attending Physician: Deion Gallegos History of Present Illness Oral Maxillofacial Surgery Exam/Consult left facial swelling Present Complaint: I have pain/swelling/drainage left side of the face and jaw Symptoms have been ongoing for a while. Patient is a 59-year-old female with past medical history significant for hypothyroidism, hypertension, hyperlipidemia, post menopausal, urinary incontinence/mixed, chronic venous insufficiency, PCOS, hepatic steatosis, vitamin D deficiency, vitamin B12 deficiency, depression, and type 2 diabetes presents with complaints of a left-sided molar pain that started 2 days ago, now vestibule and left facial swelling She has had increased swelling to the left side of her face over the course of the past 48 hours progressing from a golf ball sized swelling to more marked facial swelling extending into the left submandibular area. Also reports her left sided upper and lower lip have been slightly swollen as well. She denies any recent injury to the left molar or fracturing. States she has had some mild discomfort to the left molar over the course of the past year that has waxed and waned. She has attempted to secure an appointment with a dentist to address this issue but has had difficulty secondary to insurance purposes. She denies fever, chills, tongue swelling, dysphagia, shortness of breath/stridor, drooling, palpitations, chest pain. She does not smoke or drink ETOH. Oral Exam: Finding--P-cor associated with the inflected teeth, tender gingival tissue with deep pocket formation.Tooth # 19 has an apical radiolucency which is the cause of the current infection (left side) removal is clinical indicated. Large bilateral michaela noted Imaging: Panorex: The Panorex X Ray was reviewed, there were no abnormal findings other then the infected # 19, noted large michaela lower jaw The TMJ are well positioned and no evidence of bony pathology. The sinus, supporting bone all WNL Evaluated the nerve/sinus relationship to the roots of the teeth. CT OF THE NECK WITH IV CONTRAST CLINICAL HISTORY: Neck edema, pain, dental infection. FINDINGS: Visualized portions of the brain parenchyma are unremarkable. Mastoid air cells are clear. There is mild mucosal thickening within the right sphenoid and ethmoid sinuses. No orbital abnormality is identified. Major vasculature of the neck is patent. Parotid and submandibular glands are normal. Epiglottis is normal. Note is made of a periapical abscess of the left first mandibular molar (ADA #19). There is a tiny adjacent rim-enhancing fluid collection along the anterior aspect of the mandible which measures 0.8 x 0.2 cm. Moderate adjacent inflammation is present, including thickening of the platysma. There is skin thickening. No additional fluid collections. No soft tissue gas. No prevertebral edema. Visualized lung apices are unremarkable. Prominent cervical lymph nodes are likely reactive. Multiple dental amalgams are incidentally noted. IMPRESSION: Periapical abscess of the left first mandibular molar (#19) with a tiny adjacent abscess overlying the mandible. Moderate adjacent inflammation and skin thickening consistent with cellulitis. Soft tissue: The floor of the mouth, tongue, hard/soft palate, posterior pharyngeal area all with in normal limits, no pathology or abnormal findings noted. Swollen left mucobuccal fold and submandibular/cheek area Oral Care: Overall oral care is fair Occlusion: Class I TMJ exam: No pop, clicking, pain, good ROM, No history of TMJ injury or dysfunction Periodontal exam: Inflammatory gingival tissues with evidence of periodontal pathology lower left side Head/Neck exam: Neck is supple, FROM, Able to extend and flex neck w/o difficulty, no masses, no abnormalities, no airway issues, evidence of sleep apnea with use of C-PAP Treatment Plan: I&D with extraction of # 19 Set up with general anesthesia in hospital due to complexity of the procedure I reviewed the treatment plan and consent with the patient Understanding was expressed. Time was given for questions regarding the surgery, risks and post op care. Discussed alternative to treatment--procedure as planned, Do not do surgery The following teeth are decayed and fractured and removal is indicated ANGELICA:# 19 with I&D Risks discussed: Bleeding,Pain,swelling,infection, dry socket, delayed healing, nerve injury to face,lips,tongue,chin area which could be permanent (rare). TMJ, jaw stiffness, change in bite (rare), ear pain (referred). Sinus problems like fistula or infection. Need to leave a small root fragment in place to avoid injury to nerve or sinus. Relationship of wisdom teeth to nerve/sinus and risk of jaw fracture. Home care reviewed: need to follow up with routine dental care diet=[id number] dental. Discussed activity level, driving/work while on Rx pain Meds. Surgery to be set up Sunday AM with GA in OR NPO 12 midnight Consent for I&D with extraction # 19 signed Allergies Allergy/AdvReac Type Severity Reaction Status Date / Time bismuth subsalicylate Allergy Intermediate ringing in Verified 01/05/25 14:52 ears / passed out influenza virus vaccine ts Allergy Intermediate Rash Unverified 01/05/25 14:52 [id number] (36 mos,up) [From Fluarix] Home Medications Medication Instructions Recorded Confirmed Type blood sugar diagnostic (Contour #100 ea 12/06/18 12/03/24 Rx Next Test Strips) lancets (Microlet Lancet) #100 ea 12/06/18 12/03/24 Rx compress.stocking,knee,reg,lrg #2 ea 11/06/19 12/03/24 Rx furosemide 20 mg tablet 20 mg PO DAILY PRN Edema #30 tabs 07/05/20 01/05/25 Rx albuterol sulfate 90 mcg/actuation 2 puff inhalation Q6H PRN 03/14/22 12/03/24 History aerosol inhaler Shortness Of Breath valacyclovir 1 gram tablet 1,000 mg PO DAILY PRN Flare 05/30/23 01/05/25 History (Valtrex) lorazepam 0.5 mg tablet 0.5 mg PO Q6H PRN anxiety #30 tabs 08/31/23 01/05/25 Rx metformin 500 mg tablet,extended 500 mg PO BID #180 tabs 01/01/24 01/05/25 Rx release 24 hr famotidine 40 mg tablet 40 mg PO DAILY #90 tabs 07/22/24 01/05/25 Rx estradiol 0.01% (0.1 mg/gram) 1 g vaginal 2XWK #42.5 grams 08/27/24 01/05/25 Rx vaginal cream bupropion HCl 300 mg 24 hr tablet, 300 mg PO QAM #90 tabs 11/01/24 01/05/25 Rx extended release (Wellbutrin XL) trospium 60 mg capsule,extended 60 mg PO DAILY #90 caps 11/12/24 01/05/25 Rx release 24 hr vibegron 75 mg tablet (Gemtesa) 0 mg PO DAILY 11/28/24 01/05/25 History CPAP Supplies #1 ea 12/18/24 Rx phenazopyridine 100 mg tablet 100 mg PO TID PRN pain 6 doses #30 02/07/25 Rx tabs levothyroxine 88 mcg tablet 88 mcg PO QAM #90 tabs 02/23/25 Rx losartan 25 mg tablet 25 mg PO DAILY #90 tabs 02/23/25 Rx fosfomycin tromethamine 3 gram 1 packet PO Q3D #2 ea 03/05/25 Rx oral packet Patient History Medical History Morbid obesity with BMI of 50.0-59.9, adult Anxiety Recurrent UTI Hyperinsulinemia Surgical History History of carpal tunnel surgery of right wrist History of repair of anterior cruciate ligament of left knee History of total hysterectomy with bilateral salpingo-oophorectomy (BSO) History of wisdom tooth extraction Family History Grandfather (Paternal) Myocardial infarction Father Lung cancer Hypertension Family history of diabetes mellitus Mother Hypertension Grandmother (Paternal) Family history of diabetes mellitus Grandmother (Maternal) Family hx of colon cancer Other No family history of adverse response to anesthesia Denies family history of Ovarian cancer Prostate cancer Breast cancer Stroke Social History (Updated 11/28/24 @ 09:07 by Smith Brannon PA-C) Smoking Status: Former smoker Tobacco Type: Cigarettes Age Started Using Tobacco: 16; Age Quit Using Tobacco: 42; packs per day: 0.75; Cigarettes Per Day: 10; Smoking End Date: 15yrs ago; Second Hand Exposure: No; Do You Dip or Chew Tobacco: No; Hx Alcohol Use: No Hx Substance Use: No Preferred Language: Lao Communication Ability: Effective Hoop Maker Required: No Beliefs That Will Affect Care: None marital status: Current Living Situation: Alone current occupational status: employed current occupation: [employer] Feels Safe at Home: Yes Childhood Exposure to Second-Hand Smoke: Yes caffeine: Yes (coffee ) Dental Care, Regularly: Yes Physical Activity Frequency: Does not Exercise Seatbelt Use: always Sunscreen Use: Yes (occassionally) Assistive Devices: Glasses Results & Data Vital Signs (Past 12 Hours) Vital Signs Temp Pulse Pulse Resp BP BP Pulse Ox 04/03/25 19:51 37.1 C 62 18 145/63 H 93 04/03/25 14:50 37.3 C 60 18 166/85 H 95 04/03/25 14:04 66 23 165/77 H 97 04/03/25 13:14 04/03/25 13:14 60 17 171/83 H 97 04/03/25 11:00 63 20 153/89 H 97 Pulse Ox O2 Del Method O2 Del Method 04/03/25 19:51 Room Air 04/03/25 14:50 Room Air 04/03/25 14:04 Room Air 04/03/25 13:14 98 Room Air 04/03/25 13:14 Room Air 04/03/25 11:00 Room Air PG Care Time/CCT Total # of Minutes Spent Total Time Spent with Patient: Total time spent is greater than 50% in coordination of care (as documented) at patient's floor/unit and/or counseling patient: Coding Level of Care Code 07618 Inpt Consult Level 1 Diagnoses JOSEFINA on CPAP G47.33 Sore throat J02.9 Sinusitis J32.9 Sleep apnea G47.30 Facial cellulitis L03.211 Dental infection K04.7
[2025-04-04] MEDS: MoRPHine SULFATE 2 MG/ML CARP IV PRN (02:56)
[2025-04-04] MEDS: LEVOTHYROXINE SODIUM 88 MCG TABLET PO SCH (05:34)
[2025-04-04 06:22] LABS: Hematocrit (blood only) 38.3 % (37.0-47.0); Hemoglobin 13.1 g/dL (12.0-16.0); Immature Granulocytes # (auto) 0.03 K/uL (0.01-0.20); Immature Granulocytes % (auto) 0.3 %; Mean Corpuscular Hemoglobin 33.2 pg (25.0-34.0); Mean Corpuscular Volume 97.0 fL (80.0-100.0); Platelet Count 277 K/uL (130-400); RDW Standard Deviation 43.3 fL (36.4-46.3); Red Blood Count 3.95 M/uL (4.20-5.40); White Blood Count 11.75 K/ul (4.8-10.8)
[2025-04-04 06:48] LABS: Anion Gap 6.0 (3-11); Blood Urea Nitrogen 7.0 mg/dl (6-23); Calcium 9.7 mg/dl (8.6-10.3); Carbon Dioxide 28.0 mmol/L (21-32); Chloride 103.0 mmol/L (98-107); Creatinine Clr Calc Pharmacy 108.9 ml/min; Glucose 105.0 mg/dl (70-99(Fasting)); Potassium 4.0 mmol/L (3.5-5.1); Sodium 137.0 mmol/L (136-145)
[2025-04-04 07:36] LABS: Hemoglobin A1C 6.0 % (4.5-5.6)
[2025-04-04] MEDS: LOSARTAN POTASSIUM 25 MG TAB PO SCH (08:34)
--- NOTE | 2025-04-04 11:07 | Hospitalist Progress Note ---
"Date of Service April 04, 2025 Assessment & Plan (1) Dental infection: (2) Facial cellulitis: (3) Hypertension: (4) Sleep apnea: (5) Diabetes mellitus, type 2: (6) Hypothyroidism: (7) Depression: Plan Patient is a 59-year-old female with past medical history significant for h ypothyroidism, hypertension, hyperlipidemia, post menopausal, urinary incontinence/mixed, chronic venous insufficiency, PCOS, hepatic steatosis, vitamin D deficiency, vitamin B12 deficiency, depression, and type 2 diabetes presents with complaints of a left-sided molar pain that started 2 days ago. She has had increased swelling to the left side of her face over the course of the past 48 hours progressing from a golf ball sized swelling to more marked facial swelling extending into the left submandibular area. She has been without any symptoms of Sarbjit's angina-->>no tongue swelling or tongue elevation, difficulty swallowing, or concerns related to voice articulation. ER workup unremarkable in regards to concerns for overt infection as CBC is without marked leukocytosis with white blood cells at 11.46, pro-catalina 0.04, lactate 0.8. She presented to the emergency department without fever/hypotension/tachycardia. Blood cultures drawn in the emergency department. She did receive 1 dose of Unasyn 3 g IV in the emergency department. CT of the neck with IV contrast revealed periapical abscess of the left first mandibular molar with adjacent abscess overlying the mandible, moderate adjacent inflammation and skin thickening consistent with cellulitis. ##Dental abcess/facial cellulitis -on med/tele, NSR 70s -cont pulse oximetry -Unasyn 3Gm IV Q6H -Tylenol po PRN pain, Morphine IV prn pain control -clear liquid diet, NPO after MN in anticipation of surgical intervention 04/05 am -consult maxillofacial surgery-->case discussed with Dr. Wilson with imaging [facility] car[facility]aj[facility], will see patient in the am -CBC with WBCs @ 11.75, CRP 8.43 -BCX2 prelim no growth ##T2DM -hold Metformin -last HbA1C 6.0 05/20/24, HbA1C this am 6.0 -BSG ACHS discontinued per patient request, states she takes Metformin for PCOS ##HTN -cont ARB ##Depression|anxiety -cont bupropion hcl 300mg daily -cont lorazepam 0.5mg po Q6H prn ##hypothyroidism -TSH 3.203 -cont levothyroxine 88mcg po daily ##sleep apnea -CPAP as tolerated considering facial swelling DVT prophylaxis: SCDs, low risk Diet: Clears, NPO after MN Disposition: Admit to med-tele CODE STATUS: FULL CODE Admission and Anticipated Discharge Date Admission Date: April 03, 2025 Subjective Reports she is doing well this am with no progression in swelling. Pain is being managed adequately with oral Tylenol and Morphine. Denies fever, chills. Did have full liquids this am and tolerated with no c/o dysphagia choking or drooling. Review of Systems Review of Systems: All systems reviewed & are unremarkable except as noted in Subjective Physical Exam Physical Exam: GENERAL APPEARANCE: A&O. Sitting comfortably in bed. NAD. SKIN: Normal color without rashes or lesions. Normal turgor. HEENT: Head AT/NC. Buccal mucosa is moist and pink. Slight swelling to left upper/lower lip. No tongue swelling, tongue elevation. Able to open mouth without restriction. Uvula midline and non-deviated. Left molar #19 with darkening, no drainage, slight erythema surrounding area. Left facial area with swelling extending into left submandibular area with slight erythema and no streaking of skin. NECK: No jugular venous distention. There is no lymphadenopathy. HEART: RRR without m/g/r. LUNGS: Normal inspiratory effort. CTA without w/r/r, no stridor. ABDOMEN: No guarding or rigidity. Normoactive BS in all four quadrants. Abdomen soft and NT. MSK: No bony gross/deformities throughout. ROM intact. EXTREMITIES: No edema, No peripheral cyanosis. Neuro: CN 2-12 grossly intact. No focal neuro deficits PSYCHIATRIC: Normal affect. Eye contact is good. Speech is normal rate and content. Responses are appropriate. Results & Data Results & Data Vital Signs (Past 12 Hours) Vital Signs Temp Pulse Pulse Resp BP Pulse Ox O2 Del Method 04/04/25 08:22 36.7 C 60 18 153/78 H 90 Room Air 04/04/25 07:34 59 L 04/04/25 02:14 36.5 C 56 L 16 145/70 H 90 Room Air 04/03/25 23:10 37.2 C 67 16 146/63 H 91 Room Air Laboratory Results Labs reviewed: CBC, BMP, HbA1C, , CRP PG Care Time/CCT Total # of Minutes Spent Total Time Spent with Patient: Total time spent is greater than 50% in coordination of care (as documented) at patient's floor/unit and/or counseling patient: Coding Level of Care Code 03418 SUB INP/OBS CARE 3/50MIN Diagnoses Dental infection K04.7 Facial cellulitis L03.211 Essential hypertension I10 Hypertension type: essential hypertension Sleep apnea G47.30 Diabetes mellitus, type 2 E11.9 Hypothyroidism, unspecified type E03.9 Hypothyroidism type: unspecified Depression F32.A (3) Hypertension Hypertension type: essential hypertension Qualified Code(s): I10 - Essential (primary) hypertension (6) Hypothyroidism Hypothyroidism type: unspecified Qualified Code(s): E03.9 - Hypothyroidism, unspecified"
[2025-04-05 06:56] LABS: Hematocrit (blood only) 38.3 % (37.0-47.0); Hemoglobin 12.9 g/dL (12.0-16.0); Immature Granulocytes # (auto) 0.03 K/uL (0.01-0.20); Immature Granulocytes % (auto) 0.3 %; Mean Corpuscular Hemoglobin 32.9 pg (25.0-34.0); Mean Corpuscular Volume 97.7 fL (80.0-100.0); Platelet Count 280 K/uL (130-400); RDW Standard Deviation 43.6 fL (36.4-46.3); Red Blood Count 3.92 M/uL (4.20-5.40); White Blood Count 8.68 K/ul (4.8-10.8)
[2025-04-05] MEDS ORDERED: ROCURONIUM BROMIDE 10 MG/ML 5 ML VIAL IV ONE (07:17)
[2025-04-05] MEDS ORDERED: PROPOFOL IV EMULSION 10 MG/ML 20 ML VIAL IV ONE (07:17)
[2025-04-05] MEDS ORDERED: DEXAMETHASONE SOD INJ 4 MG/ML VIAL ONE (07:17)
[2025-04-05] MEDS ORDERED: ONDANSETRON INJ 2 MG/ML 2 ML VIAL ONE (07:17)
[2025-04-05] MEDS ORDERED: SUGAMMADEX SODIUM 200 MG/2 ML VIAL IV ONE ×2 (07:18)
[2025-04-05 07:22] LABS: Anion Gap 8.0 (3-11); Blood Urea Nitrogen 8.0 mg/dl (6-23); Calcium 10.1 mg/dl (8.6-10.3); Carbon Dioxide 28.0 mmol/L (21-32); Chloride 103.0 mmol/L (98-107); Creatinine Clr Calc Pharmacy 126.4 ml/min; Glucose 94.0 mg/dl (70-99(Fasting)); Potassium 4.0 mmol/L (3.5-5.1); Sodium 139.0 mmol/L (136-145)
--- NOTE | 2025-04-05 07:23 | Anesthesiology Consultation ---
Date of Service April 05, 2025 Assessment & Plan (1) Encounter for pre-operative examination: Chart Review Chart Review: Acceptable Risk for Surgery History Surgery Operation Date: 04/05/25 07:30 Proposed Procedures p Incision and Drainage of Left Face/Jaw with removal of tooth #19.(Left) - Vincent Wilson, DMD Height/Weight Height: 5 ft 1 in Weight: 113.4 kg Allergies Allergy/AdvReac Type Severity Reaction Status Date / Time bismuth subsalicylate Allergy Intermediate ringing in Verified 01/05/25 14:52 ears / passed out influenza virus vaccine ts Allergy Intermediate Rash Unverified 01/05/25 14:52 [id number] (36 mos,up) [From Fluarix] Medications Home Medications Medication Instructions Recorded Confirmed Last Taken blood sugar diagnostic (Contour #100 ea 12/06/18 12/03/24 Unknown Next Test Strips) lancets (Microlet Lancet) #100 ea 12/06/18 12/03/24 Unknown compress.stocking,knee,reg,lrg #2 ea 11/06/19 12/03/24 Unknown furosemide 20 mg tablet 20 mg PO DAILY PRN Edema #30 tabs 07/05/20 01/05/25 Unknown albuterol sulfate 90 mcg/actuation 2 puff inhalation Q6H PRN 03/14/22 12/03/24 Unknown aerosol inhaler Shortness Of Breath valacyclovir 1 gram tablet 1,000 mg PO DAILY PRN Flare 05/30/23 01/05/25 Unknown (Valtrex) lorazepam 0.5 mg tablet 0.5 mg PO Q6H PRN anxiety #30 tabs 08/31/23 01/05/25 Unknown metformin 500 mg tablet,extended 500 mg PO BID #180 tabs 01/01/24 01/05/25 11/27/24 release 24 hr famotidine 40 mg tablet 40 mg PO DAILY #90 tabs 07/22/24 01/05/25 11/27/24 estradiol 0.01% (0.1 mg/gram) 1 g vaginal 2XWK #42.5 grams 08/27/24 01/05/25 Unknown vaginal cream bupropion HCl 300 mg 24 hr tablet, 300 mg PO QAM #90 tabs 11/01/24 01/05/25 11/27/24 extended release (Wellbutrin XL) trospium 60 mg capsule,extended 60 mg PO DAILY #90 caps 11/12/24 01/05/25 11/27/24 release 24 hr vibegron 75 mg tablet (Gemtesa) 0 mg PO DAILY 11/28/24 01/05/25 Unknown CPAP Supplies #1 ea 12/18/24 Unknown phenazopyridine 100 mg tablet 100 mg PO TID PRN pain 6 doses #30 02/07/25 Unknown tabs levothyroxine 88 mcg tablet 88 mcg PO QAM #90 tabs 02/23/25 Unknown losartan 25 mg tablet 25 mg PO DAILY #90 tabs 02/23/25 Unknown fosfomycin tromethamine 3 gram 1 packet PO Q3D #2 ea 03/05/25 Unknown oral packet Active Medications Generic Name Dose Route Start Last Admin Trade Name Freq PRN Reason Stop Dose Admin Acetaminophen 650 mg 04/03/25 12:46 04/03/25 21:53 Acetaminophen 325 Mg Tab PO 05/03/25 12:45 650 mg Q4H PRN Administration Pain or Fever Bupropion HCl 300 mg 04/04/25 09:00 04/04/25 08:34 Bupropion Xl 300 Mg Tabcr PO 05/04/25 08:59 300 mg QAM MILTON Administration Ampicillin Sodium/Sulbactam Sodium 3,000 mg in 100 mls @ 200 mls/hr 04/03/25 16:00 04/05/25 06:21 Unasyn IV 04/10/25 15:59 Infused Q6H MILTON Infusion Levothyroxine Sodium 88 mcg 04/04/25 06:30 04/05/25 05:52 Levothyroxine Sodium 88 Mcg Tablet PO 05/04/25 06:29 88 mcg DAILYBB MILTON Administration Losartan Potassium 25 mg 04/04/25 09:00 04/04/25 08:34 Losartan Potassium 25 Mg Tab PO 05/04/25 08:59 25 mg QAM MILTON Administration Morphine Sulfate 2 mg 04/03/25 22:34 04/04/25 08:39 Morphine Sulfate 2 Mg/Ml Carp IV 04/17/25 12:49 2 mg Q4H PRN Administration Pain Past Medical History Medical History (Updated 04/05/25 @ 07:22 by Ramone Higgins MD) Asthma inhaler prn Diabetes mellitus, type 2 Claudication Depression Anxiety JOSEFINA on CPAP Morbid obesity with BMI of 50.0-59.9, adult Recurrent UTI Hyperinsulinemia Past Family History Family History Grandfather (Paternal) Myocardial infarction Father Lung cancer Hypertension Family history of diabetes mellitus Mother Hypertension Grandmother (Paternal) Family history of diabetes mellitus Grandmother (Maternal) Family hx of colon cancer Other No family history of adverse response to anesthesia Denies family history of Ovarian cancer Prostate cancer Breast cancer Stroke Past Surgical History Surgical History History of carpal tunnel surgery of right wrist History of repair of anterior cruciate ligament of left knee History of total hysterectomy with bilateral salpingo-oophorectomy (BSO) History of wisdom tooth extraction Social History Smoking Status: Former smoker Smoking cigarettes per day: 10 Do You Dip or Chew Tobacco: No Smoking End Date: 15yrs ago Hx Alcohol Use: No alcohol intake frequency: holidays/special occasions only Hx Substance Use: No substance use type: does not use Physical Exam Vital Signs Last Vital Signs Temp 37.0 C 04/05/25 04:21 Pulse 54 L 04/05/25 04:21 Resp 20 04/05/25 04:21 BP 121/65 04/05/25 04:21 Pulse Ox 92 04/05/25 04:21 O2 Del Method Room Air 04/05/25 04:21 Testing Laboratory Results 04/05/25 05:48 Hemoglobin A1c 6.0 % (4.5-5.6) H 04/04/25 05:57 04/03/25 09:43 Aerobic Blood Culture - Preliminary Blood No growth in Aerobic bottle after 24 hours. Anaerobic Blood Culture - Final 04/03/25 09:46 Aerobic Blood Culture - Preliminary Blood No growth in Aerobic bottle after 24 hours. Anaerobic Blood Culture - Final Electrocardiogram Date: 11/28/24 Findings: + SB @ (53) Echocardiogram Date: 11/28/24 EF: 60-65% LV Function: normal Valvular Disease: + no significant valvular disease
[2025-04-05] MEDS ORDERED: PROMETHAZINE HCL 6.25 MG in SODIUM CHLORIDE 0.9% 50 ML IV PRN (07:28)
[2025-04-05] MEDS ORDERED: ATROPINE SULFATE 0.1 MG/ML 10ML SYR IV PRN (07:28)
--- NOTE | 2025-04-05 07:32 | History & Physical Bridge Note ---
Date of Service April 05, 2025 History & Physical Bridge Note I have examined the patient, reviewed the History & Physical and in the interval since the performance of the History & Physical I have noted the following changes of clinical significance: no changes noted. We will plan the I&D with extraction of # 19
[2025-04-05] MEDS: CHLORHEXIDINE GLUCONATE 0.12% 480 ML MT ONE (07:56)
[2025-04-05] MEDS: BUPIVACAINE/EPINEPHRINE 0.5% 1:200,000 1.8 ML CARP ONE (08:06)
--- NOTE | 2025-04-05 08:24 | Operative Report ---
PG Post Operative Report Pre & Post Diagnosis Operation Date: 04/05/25 07:30 Pre-Op Diagnosis: Periapical abscess left first mandibular molar Post-Op Diagnosis: Periapical abscess left first mandibular molar I identified the patient and participated in the time-out.: Yes Procedure Operation Date: 04/05/25 07:30 Actual Procedures p Incision and Drainage of Left Face/Jaw with Removal of Tooth #19.(Left) - Vincent Wilson DMD Surgeon Vincent Wilson DMD [employer] Manager none Estimated Blood Loss 2 Findings Consistent with Post-Op Diagnosis Grossly infected left mucobuccal fold with extension into submandibular and cheek Infected abscessed # 19 Specimens none Drains none Anesthesia Type General Complications none Disposition Accompanied Patient To Recovery: Yes Description of Procedure ICD10 K12.1 CPT 39959 D7210 # 19 Actual Procedures p Incision and Drainage left Submandibular Abscess; Removal of Tooth #19 (Not Applicable) - Vincent Wilson DMD Once cleared for surgery general anesthesia was achieved, the eyes were protected by the anesthesia dept criteria. A time out was take for patient ID, antibiotics, equipment and position verification once all agreed the procedure began. Local anesthesia using Marcaine with a vasoconstrictor ( 1.8 ml per site) given into left inferior alveolar nerve A throat pack was placed after the oral cavity was irrigated with saline. Once a surgical level of anesthesia was obtained and the local anesthesia was given time for the blocks the surgery was started. I turned my attention to the infection which was located in the left mucobuccal fold and submandibular area There was also swelling associated with tooth # 19 ( see CT scan report) Incision and Drainage (CPT 91078) Using a 15 blade an incision was made in the lower left vestibule fold Once the incision was made a lot of pus extruded from the site. A curved hemostat was carefully placed into the infected space along the lateral side of the lower jaw and into the submandibular space. Some further drainage was now allowed to escape. I palpated the cheek and submandibular,submental area and no further drainage was expressed. The area was irrigated with at least 100 ml of NS solution. I now turned my attention to remove the # 19 tooth. Lower # 19 (D7210) The full thick Muco-periosteal flap was made on the facial aspect from # 18-21. The flap was reflected to expose the the subperiosteal space the bone adjacent to # 19.There was a lot of infected tissue and necrotic loose bone The rongeur was used to remove bone, the tooth was removed with a cowhorn dental forceps , the mental nerve was intact, there was a large amount of granulation tissue on the apex which was curetted and some more pus that was expressed. The site was closed with a few 2-0 chromic sutures. I inspected the sites to insure all bleeding was controlled. I removed the throat pack and suctioned the throat. Al gauze pressure dressings was placed. All instrument and sponge count was correct. The patient was allowed to awake from the anesthesia. Once full awake the anesthesia tube was removed and the patient was taken to the recovery room with all vital sign stable. The patient tolerated the surgery very well. I will follow the patient in my office, Rx and instructions will be given upon discharge. I attest to the content of the Intraoperative Record and any orders documented therein. Any exceptions are noted below.
[2025-04-05] MEDS: KETOROLAC 30 MG/ML VIAL IV PRN (08:31)
[2025-04-05 09:22] VITALS: RESP 18
--- NOTE | 2025-04-05 09:43 | Anesthesiology Progress Note ---
Date of Service April 05, 2025 Anesthesia Post Procedure Vital Signs Vital Signs: Temp Pulse Pulse Pulse Resp BP BP 04/05/25 09:00 36.8 C 66 18 155/76 H 04/05/25 08:45 37.1 C 62 20 148/74 H 04/05/25 08:35 60 16 154/74 H 04/05/25 08:25 62 18 146/68 H 04/05/25 08:16 36.2 C L 63 14 153/72 H 04/05/25 08:03 54 L 04/05/25 04:21 37.0 C 54 L 20 121/65 04/04/25 23:50 37.7 C H 90 20 125/68 04/04/25 21:50 62 04/04/25 19:39 37.8 C H 82 20 122/57 L 04/04/25 16:07 37.1 C 72 18 123/75 04/04/25 14:50 68 04/04/25 11:49 37 C 58 L 20 136/67 Pulse Ox O2 Del Method O2 Flow Rate 04/05/25 09:00 95 Nasal Cannula 2 04/05/25 08:45 96 Nasal Cannula 2 04/05/25 08:35 97 Nasal Cannula 2 04/05/25 08:25 95 Nasal Cannula 2 04/05/25 08:16 94 Oxymask 6 04/05/25 08:03 04/05/25 04:21 92 Room Air 04/04/25 23:50 96 Room Air 04/04/25 21:50 04/04/25 19:39 98 Room Air 04/04/25 16:07 93 Room Air 04/04/25 14:50 04/04/25 11:49 94 Room Air Pain Intensity Mouth: Pain Intensity: 3 Transfer of Care Handoff Completed per policy Notes Mental Status: alert / awake / arousable Patient Amnestic to Procedure: Yes Nausea / Vomiting: adequately controlled Pain: adequately controlled Airway Patency, RR, SpO2: stable & adequate BP & HR: stable & adequate Hydration State: stable & adequate Anesthetic Complications: no major complications apparent
[2025-04-05 13:04] VITALS: O2SAT 94
[2025-04-05 13:36] VITALS: TEMP 98.1
[2025-04-05 15:45] VITALS: BP 135/62; PULSE 59
--- NOTE | 2025-04-05 17:44 | Discharge Summary ---
"Discharge Summary Date of Service April 05, 2025 Principal Dx & Hospital Course #1 = Principal Diagnosis (1) Dental infection: (2) Facial cellulitis: (3) Hypertension: (4) Sleep apnea: (5) Diabetes mellitus, type 2: (6) Hypothyroidism: (7) Depression: Plan Patient is a 59-year-old female with past medical history significant for hypothyroidism, hypertension, hyperlipidemia, post menopausal, urinary incontinence/mixed, chronic venous insufficiency, PCOS, hepatic steatosis, vitamin D deficiency, vitamin B12 deficiency, depression, and type 2 diabetes presents with complaints of a left-sided molar pain that started 2 days ago. She has had increased swelling to the left side of her face over the course of the past 48 hours progressing from a golf ball sized swelling to more marked facial swelling extending into the left submandibular area. She has been without any symptoms of Sarbjit's angina-->>no tongue swelling or tongue elevation, difficulty swallowing, or concerns related to voice articulation. ER workup un remarkable in regards to concerns for overt infection as CBC is without marked leukocytosis with white blood cells at 11.46, pro-catalina 0.04, lactate 0.8. She presented to the emergency department without fever/hypotension/tachycardia. Blood cultures drawn in the emergency department. She did receive 1 dose of Unasyn 3 g IV in the emergency department. CT of the neck with IV contrast revealed periapical abscess of the left first mandibular molar with adjacent abscess overlying the mandible, moderate adjacent inflammation and skin thickening consistent with cellulitis. Feeling much improved post surgery this am with Dr. Wilsno. Marked improvement in left facial swelling, left upper/lower lip swelling, left submandibular swelling. Without fever, chills or unmanageable pain. Has not had Morphine since 04/04. ##Dental abcess/facial cellulitis -on med/tele, NSR 70s -cont pulse oximetry -Unasyn 3Gm IV Q6H -s/p left tooth #19 extraction this am with Dr. Wilson -BC NGTD after 48H -CBC without leukocytosis this am -CRP 8.43, 7.14 -d/c on Augmentin, Tramadol for pain -f/u with Dr. Wilson ##T2DM -hold Metformin -last HbA1C 6.0 05/20/24, HbA1C this am 6.0 -BSG ACHS discontinued per patient request, states she takes Metformin for PCOS ##HTN -cont ARB ##Depression|anxiety -cont bupropion hcl 300mg daily -cont lorazepam 0.5mg po Q6H prn ##hypothyroidism -TSH 3.203 -cont levothyroxine 88mcg po daily ##sleep apnea -CPAP as tolerated considering facial swelling DVT prophylaxis: SCDs, low risk Diet: Clears, NPO after MN Disposition: Admit to [facility] CODE STATUS: FULL CODE Admission HPI Per Admitting Provider Patient is a 59-year-old female with past medical history significant for hypothyroidism, hypertension, hyperlipidemia, post menopausal, urinary incontinence/mixed, chronic venous insufficiency, PCOS, hepatic steatosis, vitamin D deficiency, vitamin B12 deficiency, depression, and type 2 diabetes presents with complaints of a left-sided molar pain that started 2 days ago. She has had increased swelling to the left side of her face over the course of the past 48 hours progressing from a golf ball sized swelling to more marked facial swelling extending into the left submandibular area. Also reports her left sided upper and lower lip have been slightly swollen as well. She denies any recent injury to the left molar or fracturing. States she has had some mild discomfort to the left molar over the course of the past year that has waxed and waned. She has attempted to secure an appointment with a dentist to address this issue but has had difficulty secondary to insurance purposes. She denies fever, chills, tongue swelling, dysphagia, shortness of breath/stridor, drooling, palpitations, chest pain. She does not smoke or drink ETOH. After full discussion regarding resuscitative status while being hospitalized the patient states she wishes to be a full code. Discharge Exam GENERAL APPEARANCE: A&O. Sitting comfortably in bed. NAD. SKIN: Normal color without rashes or lesions. Normal turgor. HEENT: Head AT/NC. Buccal mucosa is moist and pink. No lip swelling. No tongue swelling, tongue elevation. Able to open mouth without restriction. Uvula midline and non-deviated. Left molar #19 now absent. Left facial area with slight swelling. No neck swelling or redness. NECK: No jugular venous distention. There is no lymphadenopathy. HEART: RRR without m/g/r. LUNGS: Normal inspiratory effort. CTA without w/r/r, no stridor. ABDOMEN: No guarding or rigidity. Normoactive BS in all four quadrants. Abdomen soft and NT. MSK: No bony gross/deformities throughout. ROM intact. EXTREMITIES: No edema, No peripheral cyanosis. Neuro: CN 2-12 grossly intact. No focal neuro deficits PSYCHIATRIC: Normal affect. Eye contact is good. Speech is normal rate and content. Responses are appropriate. Discharge Plan Discharge Items Patient Disposition: Home - Self-Care Reason For Visit: PERIAPICAL ABCESS LEFT FIRST MANDIBULAR MOLAR Discharge Diagnosis: infection lower left mucobuccal fold and abscessed # 19 Condition on Discharge: Good Activity: Resume your previous activity Bathing: No limitations Exercise/Sports: Gradually increase as tolerated Driving/Machine Use: Resume 1 day after discharge Weightbearing: Full weightbearing Non-emergency contact: Surgeon Call non-emergency contact if: your temperature is above 101.5, your wound has increased redness, your wound has increased drainage and your wound pain has increased Follow-up/Referrals: Diego Montez DO [Primary Care Provider] - 04/15/25 1:30 pm Vincent Wilson, DAVID [Physician] - Diet: Regular, Full liquid and Clear liquid Diet Texture: Easy to Chew Diet Comment: advance as tolaerated Addtl Attending Provider Instructions: Lacey, You were admitted to the hospital for a dental infection. You received IV antibiotics and had surgery to have your tooth removed. You were sent two medications to your pharmacy. One is an antibiotic called Augm entin you can start tomorrow. The other medication is called Tramadol you can take twice a day as needed for pain for the next three days. ADDITIONAL ACTIVITY RECOMMENDATIONS: * [place] teeth after every meal. It is very important to keep your mouth clean to prevent infection. * Starting tonight rinse with the Peridex as directed then 2 x a day * it is very important to keep well hydrated, this prevents fever and possible dry socket pain SPECIAL CARE INSTRUCTIONS: *It is not uncommon that between day 2-4 that your swelling will be at its worst this is very normal, do not be alarmed. * Keep ice on the side of your face for the next 24 to 36 hours. This will help keep the swelling down. * A certain amount of bleeding is to be expected. It is often possible to control mild oozing by placing folded gauze over the area and biting down for 30 minutes. If you are unable to control excessive bleeding, call Dr Wilson at [phone] * You may experience some discomfort for a few days. If pain or swelling increases, Call Dr Wilson * Return to the office for a follow up check up on: Please call office to set up a follow up 10-12 days after discharge from the hospital * office address--[address]. phone # [phone] Pending Studies at Discharge: No Stand-Alone Forms: My [facility] LocalOn, Work/School Release, Smoking Cessation Medications and DC Order Prescriptions: New tramadol 50 mg tablet 50 mg PO BID PRN (Reason: pain) Qty: 6 0RF Continued (DME) compress.stocking,knee,reg,lrg Misc See Rx Instructions .ROUTE .MEDSUPPLY Qty: 2 0RF Rx Instructions: As directed- 1 pair furosemide 20 mg tablet 20 mg PO DAILY PRN (Reason: Edema) Qty: 30 0RF lorazepam 0.5 mg tablet 0.5 mg PO Q6H PRN (Reason: anxiety) Qty: 30 0RF metformin 500 mg tablet extended release 24 hr 500 mg PO BID Qty: 180 3RF famotidine 40 mg tablet 40 mg PO DAILY Qty: 90 3RF estradiol 0.01 % (0.1 mg/gram) cream 1 g vaginal 2XWK Qty: 42.5 1RF Patient Comments: Apply pea-sized amount to vaginal opening two times weekly. The days alternate. 11/28/24 bupropion HCl [Wellbutrin XL] 300 mg tablet extended release 24 hr 300 mg PO QAM Qty: 90 0RF trospium 60 mg capsule,extended release 24hr 60 mg PO DAILY Qty: 90 1RF Rx Instructions: must be taken on empty stomach at least 1 hour before a meal/food with water only (DME) CPAP Supplies Misc See Rx Instructions .Route Qty: 1 0RF Rx Instructions: As directed phenazopyridine 100 mg tablet 100 mg PO TID PRN (Reason: pain) Qty: 30 0RF levothyroxine 88 mcg tablet 88 mcg PO QAM Qty: 90 0RF losartan 25 mg tablet 25 mg PO DAILY Qty: 90 3RF fosfomycin tromethamine 3 gram packet 1 packet PO Q3D Qty: 2 0RF (DME) Contour Next Test Strips strip See Dose Instructions .ROUTE .MEDSUPPLY Qty: 100 3RF Dose Instruction: As directed Rx Instructions: As directed twice daily E11.9 (DME) lancets [Microlet Lancet] misc See Dose Instructions .ROUTE .MEDSUPPLY Qty: 100 3RF Dose Instruction: As directed Rx Instructions: As directed twice daily E11.9 albuterol sulfate 90 mcg/actuation Hfa Aerosol Inhaler 2 puff INHALATION Q6H PRN (Reason: Shortness Of Breath) Gemtesa 75 mg tablet 0 mg PO DAILY Patient Comments: Pt hasn't started yet, currently waiting on PA from insurance [employer]. 11/28/2024 No Action valacyclovir [Valtrex] 1 gram tablet 1,000 mg PO DAILY PRN (Reason: Flare) Qty: 7 0RF Discharge Orders: Discharge Order (Routine); Ordered 04/05/25 Ordered By: Noemi Richardson/Other Patient Handouts: Managing Type 2 Diabetes Admission Data Admit Date/Time: 04/03/25 12:26 Attending Provider: Deion Gallegos Admit Provider: Deion Gallegos Primary Care Provider: Diego Montez Other Providers: Vincent Wilson Other Interventions: Discharge Summary Assessment (RN) Last Done: 04/05/25 15:42 Hospital Stay Data Consultations 04/03/25 11:06 ED Decision to Admit Stat 04/03/25 13:52 Consult Oromaxillofacial Surgery Routine Procedures Performed Operation Date: 04/05/25 07:30 Actual Procedures p Incision and Drainage of Left Face/Jaw with Removal of Tooth #19.(Left) - Vincent Wilson DMD Diagnostic Imagining Performed 04/03/25 09:12 CT soft tissue neck w con Stat Pending Results Patient Have Any Pending Studies at Discharge: No Discharge Instructions Given to Patient (Per Discharging Provider) Lacey, You were admitted to the hospital for a dental infection. You received IV antibiotics and had surgery to have your tooth removed. You were sent two medications to your pharmacy. One is an antibiotic called Augmentin you can start tomorrow. The other medication is called Tramadol you can take twice a day as needed for pain for the next three days. ADDITIONAL ACTIVITY RECOMMENDATIONS: * [place] teeth after every meal. It is very important to keep your mouth clean to prevent infection. * Starting tonight rinse with the Peridex as directed then 2 x a day * it is very important to keep well hydrated, this prevents fever and possible dry socket pain SPECIAL CARE INSTRUCTIONS: *It is not uncommon that between day 2-4 that your swelling will be at its worst this is very normal, do not be alarmed. * Keep ice on the side of your face for the next 24 to 36 hours. This will help keep the swelling down. * A certain amount of bleeding is to be expected. It is often possible to control mild oozing by placing folded gauze over the area and biting down for 30 minutes. If you are unable to control excessive bleeding, call Dr Wilson at [phone] * You may experience some discomfort for a few days. If pain or swelling increases, Call Dr Wilson * Return to the office for a follow up check up on: Please call office to set up a follow up 10-12 days after discharge from the hospital * office address--[address] [place], [place] [address] [address]. phone # [phone] Supervising Physician Co-Signing Physician Notes During face to face encounter, I obtained a brief physical examination, discussed hospital stay with patient and discharge instructions with patient. I discussed discharge plan of care with LILLI Saunders. I reviewed above note and agree with it except for the following: Patient was seen for a dental infection. Required a procedure to clean out abscess, treated with antibiotics and will followup with Dr. Wilson. Total Time Total Time Spent Total Time Spent (In Minutes): I spent a total of 40 minutes on the date of service in review of patient's record, and previously obtained information in person and appropriate medical visit, discussion and education of plan, with patient and/or caregiver, placing orders for tests/referral/procedures as medically necessary and documentation of pertinent clinical information in patient's medical records for their visit today. Coding Level of Care Code 54635 INP/OBS DISCH >30 MIN Diagnoses Dental infection K04.7 Facial cellulitis L03.211 Essential hypertension I10 Hypertension type: essential hypertension Sleep apnea G47.30 Diabetes mellitus, type 2 E11.9 Hypothyroidism, unspecified type E03.9 Hypothyroidism type: unspecified Depression F32.A"
== END 2025-04-05 16:03 | disposition home or self-care (01) | DRG 137 ==
LOC: ED 08:15 → EDINP 12:26 → 2N 14:22